=== PATIENT | male | born 1950 | race African-American/Black ===

== ENCOUNTER 2016-10-11 05:00 | Inpatient (IN) ==
--- NOTE | 2016-10-10 06:30 | Cardiothoracic History & Phys ---
History of Present Illness Chief complaint: Shortness of breath History of present illness: Mr. Romano is a 66 year old male who presented with symptoms of increasing dyspnea on exertion. He underwent a stress test in July 2016 which suggested an inferior defect but his ejection fraction was in the upper 50s. His exercise tolerance on the protocol was marginal and further workup was suggested. Patient underwent cardiac catheterization about a week ago which revealed significant left main coronary stenosis and the patient was advised to have bypass surgery. Because he was on Plavix we elected to wait approximately a week prior to surgery. He is admitted for coronary bypass surgery on 10/12/2016. Past medical history is significant for history of hypertension and dyslipidemia. He also has a history of a hernia repair and has had a previous abdominal aortogram. His family history is noncontributory to the present illness social history shows that the patient is a former smoker but quit 4 years ago. Review of systems is noncontributory to the present illness. Physical examination patient is a well-developed well-nourished - Polish male in no acute distress. Examination of head eyes ears nose and throat show the pupils are equal and react to light extraocular motions are intact and the oropharynx is benign. Examination of the neck shows no bruits and there is no thyromegaly and there are no masses. Examination of chest is clear to percussion and auscultation. Examination of the heart shows a regular sinus rhythm without murmurs. Examination of the abdomen shows that it is soft and nontender there are no masses or organomegaly palpable. Examination extremities shows no cyanosis or edema. Neurological examination is grossly intact. Assessment: Coronary artery disease with left main coronary involvement. Plan: Coronary bypass surgery 10/12/2016. Home Medications Medication Instructions Recorded Confirmed Type Aspirin [Ecotrin] 81 mg PO DAILY 05/15/16 10/06/16 History Atorvastatin [Lipitor] 40 mg PO BEDTIME 05/15/16 10/06/16 History Finasteride 5 mg PO DAILY 05/15/16 10/06/16 History Tamsulosin [Flomax] 0.4 mg PO DAILY 05/15/16 10/06/16 History Clopidogrel [Plavix] 75 mg PO DAILY #30 tablet 05/18/16 10/06/16 Rx Cilostazol [Pletal] 50 mg PO DAILY 06/04/16 10/06/16 History Lisinopril/Hydrochlorothiazide 1 each PO DAILY 06/04/16 10/06/16 History [Lisinopril-Hctz 10-12.5 mg Tab] Albuterol Inhaler [Proventil 1 puff INH Q6H PRN #1 inhaler 10/02/16 10/06/16 Rx Inhaler] Allergies Allergy/AdvReac Type Severity Reaction Status Date / Time No Known Allergies Allergy Unverified 05/17/16 06:54 Medical,Surgical,& Family Hx - Medical History Cardio: History of: Hypertension Neurology: No history of: Seizures Endocrine: History of: Dyslipidemia - Surgical History Cardiac Surgeries: Sugical HX of: Cardiac Catheterization Abdominal Surgeries: Surgical HX of: Hernia Repair - Family History Family History: Reports;: Family Hypertension - Social History Smoking Status: Former smoker
[2016-10-11] MEDS ORDERED: ALBUTEROL 2.5 MG/3 ML NEB RESP TX PRN (13:00)
[2016-10-11 13:10] LABS: Basophils % 0.4 % (0.0-0.8); Eosinophils # 0.1 10*3/uL (0.0-0.87); Hematocrit 26.7 VOL% (42.0-52.0); Hemoglobin 7.8 GM/DL (14.0-18.0); Immature Granulocytes % 0.3 %; Immature Granulocytes Absolute 0.02 #; Lymphocytes # 2.4 10*3/uL (1.4-4.0); Lymphocytes % 34.4 % (21.2-54.2); Mean Corpuscular HGB Conc 29.2 GM/DL (32-36); Mean Corpuscular Hemoglobin 22 PG (27-34); Mean Corpuscular Volume 75.2 FL (87-102); Mean Platelet Volume 10.1 FL (9.6-12.0); Monocytes # 0.6 10*3/uL (0.11-0.8); Monocytes % 8.6 % (1.7-12.7); Neutrophils # 3.9 10*3/uL (1.4-7.4); Neutrophils % 55.3 % (38.7-73.9); Platelet Count 329 T/CUMM (130-400); Red Blood Count 3.55 MC/CUMM (3.8-5.5); Red Cell Distribution Width 17.8 % (9.3-17.3)
[2016-10-11 13:41] LABS: Albumin 3.7 G/DL (3.4-5.0); Bilirubin,Total 0.4 MG/DL (0.2-1.0); Calcium 9.4 MG/DL (8.5-10.1); Osmolality,Calculated 278.4 MOS/KG (273-304); Potassium 4.5 MMOL/L (3.5-5.1); Total Protein 7.1 G/DL (6.4-8.3)
--- NOTE | 2016-10-11 14:46 | Hospitalist Consult Note ---
<Dick Lares - Last Filed: 10/11/16 14:33> Assessment and Plan (1) Hypertension Status: Acute Assessment and plan: Well-controlled. Continue home meds. Current Visit: Yes (2) CAD (coronary artery disease) Status: Acute Assessment and plan: Left heart cath performed by Dr. Kenn Rob revealed significant blockage of the left main artery. Patient is scheduled to undergo CABG on September. Dr. Delcid. Current Visit: Yes History of Present Illness - Data of Consult Patient: new to practice Consult date: 10/11/16 Requesting Physician: Yao Delcid - Consult Narrative Reason for consult: Glucose Management History of present illness: Mr. Romano is a 66 year old male with a past medical history significant for hypertension, coronary artery disease who is admitted for coronary bypass surgery on September. We have been consulted to manage his blood glucose levels perioperatively. The patient stated that he had been progressively experiencing dyspnea on exertion and underwent a stress test in July 2016 and a left heart catheterization on last week. He was found to have significant stenosis of the left main artery and has been advised to undergo CABG to correct this. Mr. Romano is a former smoker (quit 4 years ago) and currently drinks beer socially. On exam, he is lying awake in bed and in mild distress with the impending surgery. He denies chest pain, palpitations, shortness of breath, blurry vision, near syncope. The patient is not a diabetic but is at risk for elevated glucose levels simply by nature of the surgery. We are happy to follow along and manage as necessary. We have initiated Accu-Cheks ACHS and begun the sliding scale insulin protocol. CC: Yao Delcid MD - Home Medications and Allergies Home Medications: Home Medications Medication Instructions Recorded Confirmed Type Aspirin [Ecotrin] 81 mg PO DAILY 05/15/16 10/11/16 History Atorvastatin [Lipitor] 40 mg PO BEDTIME 05/15/16 10/11/16 History Finasteride 5 mg PO DAILY 05/15/16 10/11/16 History Tamsulosin [Flomax] 0.4 mg PO DAILY 05/15/16 10/11/16 History Clopidogrel [Plavix] 75 mg PO DAILY #30 tablet 05/18/16 10/11/16 Rx Cilostazol [Pletal] 50 mg PO DAILY 06/04/16 10/11/16 History Allergies/Adverse Reactions: Allergies Allergy/AdvReac Type Severity Reaction Status Date / Time No Known Allergies Allergy Unverified 05/17/16 06:54 Medical,Surgical,& Family Hx - Medical History Cardio: History of: CAD, Hypertension Neurology: No history of: Seizures Endocrine: History of: Dyslipidemia - Surgical History Cardiac Surgeries: Sugical HX of: Cardiac Catheterization Abdominal Surgeries: Surgical HX of: Hernia Repair - Family History Family History: Reports;: Family Hypertension - Social History Smoking Status: Former smoker Frequency of Alcohol Use: Rarely Type of Drug Use: None Marital Status: Lives With:: Spouse Functional capacity: independent ambulation - Constitutional Constitutional: Present: fatigue. Absent: frequent falls, weight gain, weight loss - EENT Eyes: Absent: blurry vision, loss of vision Ears: Absent: decreased hearing, ear pain Nose, mouth and throat: Absent: dysphagia, headache(s), neck pain, sinus pressure - Cardiovascular Cardiovascular: Present: dyspnea on exertion. Absent: chest pain at rest, edema , radiating jaw, neck or arm pain - Respiratory Respiratory: Present: dyspnea. Absent: hemoptysis, wheezing - Gastrointestinal Gastrointestinal: Absent: abdominal pain, change in bowel habits, coffee ground emesis, nausea, vomiting - Genitourinary Genitourinary: Absent: difficulty urinating, dysuria - Musculoskeletal Musculoskeletal: Absent: back pain, muscle cramps - Neurological Neurological: Absent: abnormal gait, abnormal speech, dizziness, syncope - Psychiatric Psychiatric: Absent: anxiety, depression - Endocrine Endocrine: Absent: cold intolerance, heat intolerance - Hematologic/Lymphatic Hematologic/Lymphatic: Absent: easy bleeding, easy bruising Exam - Constitutional Vitals: Period Temp Pulse Resp BP Sys/Hart Pulse Ox Last 24 Hr 98.1 F 77 17 140/77 100 Exam: General appearance: normal weight, no acute distress - Head Head exam: Present: normocephalic, atraumatic - Eye Eye exam: Present: EOMI. Absent: conjunctival injection, nystagmus Pupils: Present: BOZENA, normal accommodation - ENT ENT exam: Present: normal exam, normal external ear exam - Neck Neck exam: Present: normal inspection. Absent: lymphadenopathy, tenderness, thyromegaly - Respiratory Respiratory exam: Present: clear to auscultation bilaterally. Absent: rales, rhonchi, wheezes - Cardiovascular Cardiovascular exam: Present: regular rate and rhythm. Absent: carotid bruit, gallop, rubs - GI/Abdominal GI/Abdominal exam: Present: normal bowel sounds. Absent: ascites, distended, mass - Extremities Exam Extremities exam: Present: normal inspection, normal capillary refill. Absent: edema - Back Exam Back exam: Absent: CVA tenderness (L), CVA tenderness (R) - Neurological Exam Neurological exam: Present: alert, oriented X3 - Psychiatric Psychiatric exam: Present: normal affect, normal mood - Skin Skin exam: Present: normal color, warm, dry Results - Labs CBC & BMP: 10/11/16 13:01 10/11/16 13:01 Lab Results: I have reviewed the past 24 hour labs Quality Measures - VTE Contraindication to Pharmacological VTE Prophylaxis: High Risk of Bleeding <Lisa Butler - Last Filed: 10/11/16 19:57> History of Present Illness - Consult Narrative History of present illness: Mr. Romano is a 66 year old male with a history of PAD status post PCI in bilateral lower extremities, BPH, peptic ulcer disease, and suspected COPD who presented to the hospital with a chief complaint of "my arteries are blocked." Patient reports that approximately 2 weeks ago he started having progressive shortness of breath with dyspnea on exertion. He was diagnosed with pneumonia by his primary care provider and was treated with antibiotics and inhalers. Patient reports he took the medication for approximately a week but his symptoms and so he presented to the emergency room. He was prescribed a repeat round of antibiotics and inhalers and took this medicine for 2 days. He noticed no improvement so he went back to his primary care provider where he had a CT of the chest done. Patient followed up with his receiving and processing supervisor 2 days later and described his symptoms at which time he was scheduled for heart catheterization the next day and was noted to have three -vessel disease per the patient. He is being brought in to undergo a CABG on and we have been asked to assist with medical management. Currently patient denies any chest pain, shortness of breath, lower extremity swelling, he denies any recent long trips, or any hormone therapy. He denies any signs or symptoms of bleeding. A 10 point review of systems was reviewed with the patient was otherwise unremarkable. PMH: CAD, suspected COPD, PUD, BPH, PAD PSH: Bilateral inguinal hernia repair, bilateral PCI to the lower extremities MEDS: Atorvastatin 40 mg by mouth every evening; Pletal 50 mg by mouth daily; Flomax 0.4 mg by mouth daily; finasteride 5 mg by mouth daily; aspirin 81 mg by mouth daily. Allergies: No known drug allergies FH: +diabetes, hypertension. Denies stroke or coronary artery disease. SH: Patient quit smoking within the last 5 years after a [id number] smoking history; he occasionally drinks beer; he denies any illicit drug use; he is ; he is a full code P.E. See vitals on WELL HEAD PUMPER note. reviewed GEN: Patient is a pleasant -[place] male sitting in the hospital chair comfortable in no acute distress. Well developed and well nourished. HEENT: Pupils are equal and reactive to light. Extraocular muscles are intact. Sclerae clear clear. Conjunctivae pink. Nares are patent. No discharge or epistaxis noted. Oropharynx is clear. Neck: Supple. No lymphadenopathy or thyromegaly appreciated. No JVD. CV: RRR normal S1-S2. No obvious murmurs rubs or gallops. No carotid bruits auscultated. +2 radial and +1 DP pulses appreciated bilaterally Lungs: Clear to auscultation bilaterally diminished lung sounds nonlabored breathing noted. Abdomen: Soft, nontender, nondistended, positive bowel sounds, no organomegaly or masses appreciated. Extremities: Warm and well perfused, no clubbing cyanosis or edema. Neuro: Nonfocal Labs and investigative studies were reviewed. A/P: * CAD- plans for CABG in am. Plavix on Hold. Cont ASA and statin for now. CVTS following. Will check TSH and HgbA1c. * PAD- Cont ASA, Statin. * Dyslipidemia- on statin. Check lipid panel * BPH- cont flomax and finasteride * Microcytic anemia- Pt states he has never had a colonoscopy and denies any melena or BRBPR. Check anemia profile and send FOBT. D/W pt, and family. All questions answered. Thank you for consulting us to participate in the care of this patient. We will follow along with you. CC: Yao Delcid MD Medical,Surgical,& Family Hx - Medical History Cardio: History of: PVD Genitourinary: History of: Prostate Problems Exam - Constitutional Vitals: Period Temp Pulse Resp BP Sys/Hart Pulse Ox Last 24 Hr 98.1 F-98.8 F 58-77 16-17 128-140/69-77 99-100 Results - Labs CBC & BMP: 10/11/16 13:01 10/11/16 13:01
[2016-10-11] MEDS: CHLORHEXIDINE 4% SOLN 118 ML BOTTLE TOP SCH ×2 (14:55→20:32)
[2016-10-11] MEDS ORDERED: DEXTROSE 50% 25 GM/50 ML VIAL IV PRN (15:00)
[2016-10-11] MEDS ORDERED: SODIUM CHLORIDE 0.9% 1,000 ML IV SCH (15:00)
[2016-10-11] MEDS ORDERED: GLUCAGON 1 MG VIAL IM PRN (15:00)
--- NOTE | 2016-10-11 15:01 | EKG Report ---
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
[2016-10-11] MEDS: INSULIN LISPRO 100 UNIT/ML SUBCUT SCH ×2 (16:40→21:48)
--- NOTE | 2016-10-11 17:15 | XRay Report ---
XR chest 2V Indication: Coronary artery disease. Chest 2 views: Comparison 10/02/2016. Heart size and mediastinal contours remain normal. A coronary artery calcification is identified in the LAD territory. Lungs are hyperinflated with bullous emphysema at the apices and central interstitial scarring. No focal infiltrates are shown. Pleural spaces are clear. Impression: No acute cardiomegaly disease. Evidence of COPD. PROCEDURE INTERPRETED AT [facility] DEPARTMENT OF RADIOLOGY Final Report Signed by: Jluis Bradley M.D.
[2016-10-11 20:18] LABS: ABG Base Excess 0.1 MMOL/L (-2.5-2.5); ABG HCO3 24.5 MMOL/L (20-26); ABG Oxygen Saturation 97.5 % (95-100); ABG PCO2 38.6 MM HG (35-48); ABG PH 7.412 (7.35-7.45); ABG PO2 87.3 MM HG (80-95); ABG TCO2 23.2 MMOL/L (23-27); Pt O2 Delivery Device Room Air
[2016-10-11] MEDS: CLORAZEPATE 3.75 MG TABLET PO PRN (20:28)
[2016-10-11 20:35] LABS: Folate 11.2 NG/ML (5.4-24.0); Vitamin B12 504 PG/ML (211-911)
[2016-10-11] MEDS ORDERED: ATORVASTATIN 40 MG TABLET PO SCH (21:00)
[2016-10-11 21:33] LABS: Basophils % 0.5 % (0.0-0.8); Eosinophils # 0.1 10*3/uL (0.0-0.87); Eosinophils % 1.5 % (0.00-10.9); Hematocrit 24.9 VOL% (42.0-52.0); Hemoglobin 7.4 GM/DL (14.0-18.0); Immature Granulocytes % 0.3 %; Immature Granulocytes Absolute 0.02 #; Lymphocytes # 2.1 10*3/uL (1.4-4.0); Lymphocytes % 31.4 % (21.2-54.2); Mean Corpuscular HGB Conc 29.7 GM/DL (32-36); Mean Corpuscular Hemoglobin 22 PG (27-34); Mean Corpuscular Volume 74.8 FL (87-102); Monocytes # 0.7 10*3/uL (0.11-0.8); Monocytes % 10.1 % (1.7-12.7); Neutrophils # 3.7 10*3/uL (1.4-7.4); Neutrophils % 56.2 % (38.7-73.9); Platelet Count 288 T/CUMM (130-400); Red Blood Count 3.33 MC/CUMM (3.8-5.5); Red Cell Distribution Width 17.6 % (9.3-17.3); White Blood Count 6.7 T/CUMM (4-12)
[2016-10-11] MEDS: CHLORHEXIDINE 0.12% ORAL RINSE 60 ML BOTTLE SWISH/SPIT SCH (21:53)
[2016-10-11 22:38] LABS: Sedimentation Rate-Westergren 32 MM/HR (0-20)
[2016-10-12] MEDS: CHLORHEXIDINE 4% SOLN 118 ML BOTTLE TOP SCH ×2 (04:20→11:25)
[2016-10-12] MEDS ORDERED: PAPAVERINE 60 MG/2 ML VIAL ONE (04:37)
[2016-10-12] MEDS ORDERED: VANCOMYCIN 1,000 MG VIAL ONE (04:37)
[2016-10-12 04:56] LABS: Risk Ratio 2.32; VLDL CHOLESTEROL 7.8 MG/DL
[2016-10-12] MEDS: CLORAZEPATE 3.75 MG TABLET PO PRN (06:07)
[2016-10-12] MEDS ORDERED: CEFUROXIME INJ 1,500 MG in SODIUM CHLORIDE 0.9% 100 ML IV ONE (06:30)
[2016-10-12 07:33] LABS: ABG Base Excess -0.5 MMOL/L (-2.5-2.5); ABG HCO3 24.1 MMOL/L (20-26); ABG Oxygen Saturation 99.6 % (95-100); ABG PCO2 39.1 MM HG (35-48); ABG PH 7.407 (7.35-7.45); ABG TCO2 25.3 MMOL/L (23-27); Glucose Heart Surgery 97 MG/DL (74-106); Hemoglobin Heart Surgery 7.3 G/DL (14.0-18.0); Ionized Calcium Arterial 1.15 MMOL/L (1.21-1.46); PCO2 Patient Temp Arterial 39.1 MMHG; PH Patient Temp Arterial 7.407; PO2 Patient Temp Arterial 529.3 MM HG; Patient Temperature 37 CELCIUS; Potassium Heart/CVR 3.8 MMOL/L (3.5-5.1); Sodium Heart/CVR 135 MMOL/L (135-145)
[2016-10-12 07:34] LABS: ABG PO2 529.3 MM HG (80-95)
[2016-10-12 07:38] LABS: Apearance,Urine CLEAR (Clear); Bilirubin,Urine Negative (Negative); Blood, Urine Negative (Negative); Glucose,Urine (UA) Negative (Negative); Ketones,Urine Negative (Negative); Nitrite,Urine Negative (Negative); Protein,Urine Negative; RBC,Urine 1 /HPF (0-4); Urine Color Straw (Yellow); Urine Specific Gravity 1.012 (1.001-1.035); Urine Urobilinogen < 2.0 EU/DL (0.2-1.0); WBC,Urine <1 /HPF (0-6)
[2016-10-12] MEDS ORDERED: TISSUE ADHESIVE 1 EACH APPLICATOR TOP ONE ×2 (07:54→08:15)
[2016-10-12] MEDS ORDERED: NITROPRUSSIDE 50 MG/2 ML VIAL ONE (08:38)
[2016-10-12] MEDS ORDERED: POTASSIUM CHLORIDE RIDER 100 ML IV ONE (08:39)
[2016-10-12] MEDS ORDERED: PHENYLEPHRINE DRIP 40 MG/250 ML PREMIX IV ONE (08:39)
[2016-10-12 08:47] LABS: PH Patient Temp Venous 7.344; PO2 Patient Temp Venous 42.7 MM HG; VBG Base Excess -3.4 MEQ/L (0-4); VBG HCO3 21.3 MEQ/L (24-28); VBG Oxygen Saturation 82.7 %; VBG PCO2 44.1 MMHG (41-51); VBG PH 7.316
[2016-10-12] MEDS ORDERED: ASPIRIN EC 81 MG TABLET PO SCH (09:00)
[2016-10-12] MEDS ORDERED: TAMSULOSIN 0.4 MG CAPSULE PO SCH (09:00)
[2016-10-12] MEDS ORDERED: CILOSTAZOL 50 MG TABLET PO SCH (09:00)
[2016-10-12] MEDS ORDERED: FINASTERIDE 5 MG TABLET PO SCH (09:00)
[2016-10-12 09:21] LABS: Hematocrit Heart Surgery 23.8 PERCENT (42-52); Hemoglobin Heart Surgery 7.6 G/DL (14.0-18.0); PCO2 Patient Temp Venous 36.8 MM HG; PH Patient Temp Venous 7.392; PO2 Patient Temp Venous 33.2 MM HG; Potassium Heart/CVR 4.7 MMOL/L (3.5-5.1); VBG Base Excess -2.1 MEQ/L (0-4); VBG HCO3 22.2 MEQ/L (24-28); VBG Oxygen Saturation 68.8 %; VBG PCO2 38.6 MMHG (41-51); VBG PH 7.378; VBG PO2 35.6 MMHG (17-40)
[2016-10-12] MEDS ORDERED: MANNITOL 12.5 GM/50 ML VIAL IV ONE (09:41)
[2016-10-12] MEDS ORDERED: PHENYLEPHRINE DRIP 20 MG/250 ML PREMIX IV ONE ×2 (09:41→11:01)
[2016-10-12] MEDS ORDERED: PROTAMINE SULFATE 250 MG/25 ML VIAL IV ONE (09:41)
[2016-10-12] MEDS ORDERED: MAGNESIUM SULFATE 1 GM/2 ML VIAL ONE (09:41)
[2016-10-12] MEDS ORDERED: ALBUMIN 25% 25 GM/100 ML VIAL IV ONE (09:41)
[2016-10-12] MEDS ORDERED: DEXTROSE 5% KCL 20 MEQ 20 MEQ/1,000 ML BAG IV ONE (09:41)
[2016-10-12] MEDS ORDERED: SODIUM BICARBONATE 50 MEQ/50 ML SYRINGE IV ONE (09:41)
[2016-10-12] MEDS ORDERED: HEPARIN 10,000 UNIT/10 ML VIAL ONE (09:41)
[2016-10-12] MEDS ORDERED: methylPREDNISolone SOD SUC 1,000 MG/8 ML VIAL ONE (09:41)
[2016-10-12] MEDS ORDERED: PROTAMINE SULFATE 50 MG/5 ML VIAL IV ONE ×2 (09:42→11:12)
[2016-10-12] MEDS ORDERED: FUROSEMIDE 20 MG/2 ML VIAL ONE (09:42)
[2016-10-12 09:49] LABS: ABG Base Excess -1.9 MMOL/L (-2.5-2.5); ABG HCO3 22.8 MMOL/L (20-26); ABG TCO2 21.5 MMOL/L (23-27); Glucose Heart Surgery 246 MG/DL (74-106); Hematocrit Heart Surgery 26.3 PERCENT (42-52); Hemoglobin Heart Surgery 8.4 G/DL (14.0-18.0); Ionized Calcium Arterial 1.11 MMOL/L (1.21-1.46); Patient Temperature 37 CELCIUS; Potassium Heart/CVR 4.3 MMOL/L (3.5-5.1); Sodium Heart/CVR 135 MMOL/L (135-145)
[2016-10-12 10:09] LABS: Hemoglobin A1 (Alkaline) 97.3 % (96.5-98.5); Hemoglobin A2 (Alkaline) 2.7 % (1.5-3.5)
[2016-10-12] MEDS ORDERED: LACTATED RINGERS 250 ML IV PRN (10:46)
[2016-10-12] MEDS ORDERED: ACETAMINOPHEN 650 MG SUPP RECTAL PRN (10:46)
[2016-10-12] MEDS ORDERED: VECURONIUM 10 MG VIAL IV PRN ×2 (10:46)
[2016-10-12] MEDS ORDERED: MIDAZOLAM 2 MG/2 ML VIAL IV PRN (10:46)
[2016-10-12] MEDS ORDERED: PHENYLEPHRINE DRIP 40 MG/250 ML PREMIX IV PRN (10:46)
[2016-10-12] MEDS ORDERED: ONDANSETRON 4 MG/2 ML VIAL IV PRN (10:46)
[2016-10-12] MEDS ORDERED: MAGNESIUM SULF RIDER 4 GM in PREMIX 1 EACH IV PRN (10:46)
[2016-10-12] MEDS ORDERED: MORPHINE 2 MG/1 ML SYRINGE IV PRN (10:46)
[2016-10-12] MEDS ORDERED: INSULIN REGULAR 100 UNIT/ML IV PRN (10:46)
[2016-10-12] MEDS ORDERED: MAGNESIUM SULF RIDER 2 GM in PREMIX 1 EACH IV PRN (10:46)
[2016-10-12] MEDS ORDERED: MORPHINE 10 MG/1 ML VIAL IV PRN (10:46)
[2016-10-12] MEDS ORDERED: INSULIN REGULAR 100 UNIT/ML IV ONE (10:46)
[2016-10-12] MEDS ORDERED: DEXTROSE 50% 25 GM/50 ML VIAL IV PRN ×2 (10:46)
[2016-10-12] MEDS ORDERED: CALCIUM CHLORIDE 1,000 MG/10 ML SYRINGE IV PRN (10:46)
[2016-10-12] MEDS ORDERED: NITROPRUSSIDE 100 MG in DEXTROSE 5% 250 ML IV PRN (10:46)
--- NOTE | 2016-10-12 10:53 | Operative Note ---
Date of procedure: 10/12/16 Pre-op diagnosis: coronary artery disease Post-op diagnosis: same Procedure: Procedure: Coronary bypass grafting 2 with a left internal mammary graft to the circumflex marginal coronary artery the saphenous vein graft to the anterior descending coronary artery. Findings: Patient is a 66-year-old man with increasing symptoms of dyspnea on exertion who underwent evaluation including cardiac catheterization which demonstrated critical occlusion of the ostium of the circumflex coronary artery and moderate left main coronary disease. At time of surgery left ventricular function was noted to be normal and a relatively small left internal mammary artery was placed to the obtuse marginal coronary artery which was moderate size vessel and free of disease site of anastomosis mammary was placed to the circumflex marginal coronary because of concerns about the size of the mammary and also that the very large LAD had only moderate disease and competitive flow might be a problem. Large saphenous vein graft was placed to very large anterior descending coronary artery which was free of disease site of anastomosis. Patient tolerated procedure well and was returned recovery in satisfactory condition. Procedure: The patient brought to the operating and placed on the operating table in supine position. After satisfactory induction of general anesthesia the chest abdomen and legs were prepped and draped in a sterile fashion. The greater saphenous vein was harvested from the left lower leg and prepared as an arterial graft. Incision leg was closed with 3-0 subcutaneous Monopril and 3-0 subcuticular Monocryl. Standard sternotomy incision was made and the sternum was divided and the heart suspended in a pericardial cradle. Left internal mammary artery was dissected free and prepared as an arterial graft. Patient was prepared for cardiopulmonary bypass with systemic heparinization and cannulation of the ascending aorta and right atrium. Cardiopulmonary bypass was begun and the aorta was crossclamped and the heart arrested with cardioplegia solution injected into the aortic root. Heart was protected during the period of crossclamping with topical saline slush. Distal anastomoses were constructed as noted above and then the aorta was unclamped reestablished and cardiac action. The proximal anastomosis was constructed between the ascending aorta and the inflow end to saphenous vein graft. Patient was then weaned from cardiopulmonary bypass without difficulty and heparin effect reversed with protamine. Decannulation was carried out with the defects in the ascending aorta and right atrium closed with 3-0 Prolene. Operative field was inspected for hemostasis and this was considered adequate the incision was closed with interrupted stainless steel wire and the sternum and 0 Monopril and the presternal fascia. Skin and was closed with 3-0 subcuticular Monocryl. 2 chest tubes were left in the anterior mediastinum and brought out through separate stab incisions. Sterile dressings were applied and the patient was returned to recovery in satisfactory condition. Anesthesia: MARYA Surgeon / Physician: Yao Delcid Estimated blood loss: other (unable to determine because of cardiopulmonary bypass) Condition: stable Disposition: ICU Results - Labs CBC & BMP: 10/12/16 09:43 10/11/16 13:01 Discharge Plan - Discharge Medications No Action Tamsulosin [Flomax] 0.4 mg PO DAILY Finasteride 5 mg PO DAILY Atorvastatin [Lipitor] 40 mg PO BEDTIME Aspirin [Ecotrin] 81 mg PO DAILY Clopidogrel [Plavix] 75 mg PO DAILY #30 tablet Cilostazol [Pletal] 50 mg PO DAILY - Follow Up or Referral - Forms/Instructions Instructions: Heart Healthy Diet (GEN), Coronary Artery Bypass Graft, Analyst Programmer (GEN), Sternal Precautions, Analyst Programmer (GEN)
[2016-10-12] MEDS ORDERED: SODIUM CHLORIDE 0.45% 1,000 ML IV SCH ×2 (11:00)
[2016-10-12] MEDS ORDERED: INSULIN REGULAR DRIP 100 ML IV SCH (11:00)
[2016-10-12] MEDS: LACTATED RINGERS 1,000 ML IV PRN ×5 (11:00→16:59)
[2016-10-12] MEDS ORDERED: SEVOFLURANE 1 UNIT/15 MINUTE INH ONE (11:01)
[2016-10-12] MEDS ORDERED: SUFentanil 250 MCG/5 ML AMP ONE (11:01)
[2016-10-12] MEDS ORDERED: MINERAL OIL/PETROLATUM OPH OINT 3.5 GM TUBE ONE (11:02)
[2016-10-12] MEDS ORDERED: ePHEDrine 50 MG/ML AMP ONE (11:02)
[2016-10-12] MEDS ORDERED: ESMOLOL 100 MG/10 ML VIAL IV ONE (11:03)
[2016-10-12] MEDS ORDERED: NITROGLYCERIN DRIP 50 MG/250 ML BOTTLE IV ONE (11:03)
[2016-10-12] MEDS ORDERED: SODIUM CHLORIDE 0.9% 2,000 ML IV ONE (11:03)
[2016-10-12] MEDS ORDERED: ETOMIDATE 20 MG/10 ML VIAL IV ONE (11:03)
[2016-10-12] MEDS ORDERED: GLYCOPYRROLATE 0.4 MG/2 ML VIAL ONE (11:03)
[2016-10-12] MEDS ORDERED: AMINOCAPROIC ACID 5,000 MG/20 ML VIAL IV ONE (11:03)
[2016-10-12] MEDS ORDERED: SODIUM CHLORIDE 0.9% 250 ML IV ONE (11:03)
[2016-10-12 11:12] LABS: ABG HCO3 25.4 MMOL/L (20-26); ABG Oxygen Saturation 99.6 % (95-100); ABG PCO2 36.9 MM HG (35-48); ABG PH 7.439 (7.35-7.45); ABG TCO2 22.9 MMOL/L (23-27); Glucose Heart Surgery 194 MG/DL (74-106); Hematocrit Heart Surgery 28.5 PERCENT (42-52); Hemoglobin Heart Surgery 9.2 G/DL (14.0-18.0); Potassium Heart/CVR 3.8 MMOL/L (3.5-5.1)
[2016-10-12 11:15] LABS: Basophils % 0.2 % (0.0-0.8); Eosinophils # 0.1 10*3/uL (0.0-0.87); Eosinophils % 0.4 % (0.00-10.9); Hematocrit 29.3 VOL% (42.0-52.0); Immature Granulocytes % 0.8 %; Immature Granulocytes Absolute 0.09 #; Lymphocytes # 0.9 10*3/uL (1.4-4.0); Lymphocytes % 7.7 % (21.2-54.2); Mean Corpuscular HGB Conc 31.4 GM/DL (32-36); Mean Corpuscular Hemoglobin 25 PG (27-34); Mean Corpuscular Volume 78.3 FL (87-102); Mean Platelet Volume 10.1 FL (9.6-12.0); Monocytes # 0.7 10*3/uL (0.11-0.8); Monocytes % 5.8 % (1.7-12.7); Neutrophils # 9.7 10*3/uL (1.4-7.4); Neutrophils % 85.1 % (38.7-73.9); Red Blood Count 3.74 MC/CUMM (3.8-5.5); Red Cell Distribution Width 18.4 % (9.3-17.3)
[2016-10-12 11:28] LABS: INR 1.2; PT Patient Result 12.4 SECS; Partial Thromboplastin Time 26.8 SECS (0-40)
[2016-10-12] MEDS: POTASSIUM CHLORIDE RIDER 20 MEQ in PREMIX 1 EACH IV PRN ×3 (11:31→20:30)
--- NOTE | 2016-10-12 11:32 | XRay Report ---
Portable chest Date: 10/12/2016 Clinical history: Line placement Comparison: 10/11/2016 Technique: Portable AP supine chest Findings: The heart is slightly larger in size with interval median sternotomy. The endotracheal tube, nasogastric tube, and mediastinal chest tubes are in satisfactory position. Right IJ CVP line with tip in right atrium. No significant pneumothorax is identified on this supine film. Diffuse parenchymal findings are noted with small pleural effusions. Degenerative changes are noted. Impression: Interval median sternotomy with support devices in satisfactory position. No significant pneumothorax is identified on the supine film. Progressive pulmonary edema/atelectasis with small pleural effusions. PROCEDURE INTERPRETED AT [facility] DEPARTMENT OF RADIOLOGY Final Report Signed by: Dr. Brenda Sauceda
[2016-10-12 11:33] LABS: White Blood Count 11.4 T/CUMM (4-12)
[2016-10-12 11:34] LABS: Hemoglobin 9.2 GM/DL (14.0-18.0); Platelet Count 247 T/CUMM (130-400)
[2016-10-12] MEDS: KETOROLAC 30 MG/1 ML VIAL IV SCH ×3 (11:44→23:21)
[2016-10-12 11:51] LABS: CKMB % 4.9 %
[2016-10-12 11:54] LABS: Troponin I Only 4.62 NG/ML (0.00-0.045)
[2016-10-12 11:59] LABS: Albumin 3.4 G/DL (3.4-5.0); Bilirubin,Total 1.1 MG/DL (0.2-1.0); Calcium 8.7 MG/DL (8.5-10.1); Total Protein 6.1 G/DL (6.4-8.3)
[2016-10-12 12:00] LABS: Osmolality,Calculated 284.4 MOS/KG (273-304)
[2016-10-12] MEDS: POTASSIUM CHLORIDE RIDER 10 MEQ in PREMIX 1 EACH IV PRN ×2 (12:08→14:31)
[2016-10-12] MEDS: MIDAZOLAM 10 MG/2 ML VIAL IV PRN ×3 (13:33→16:02)
[2016-10-12 13:35] LABS: ABG Base Excess -0.2 MMOL/L (-2.5-2.5); ABG HCO3 24.3 MMOL/L (20-26); ABG Oxygen Saturation 99.9 % (95-100); ABG PCO2 36.7 MM HG (35-48); ABG PH 7.422 (7.35-7.45); ABG TCO2 21.9 MMOL/L (23-27); Glucose Heart Surgery 133 MG/DL (74-106); Hemoglobin Heart Surgery 9.4 G/DL (14.0-18.0); Potassium Heart/CVR 3.9 MMOL/L (3.5-5.1)
--- NOTE | 2016-10-12 14:10 | Hospitalist Progress Note ---
Hospitalist: Subjective Interval history: Visited this am. No significant overnight events/ new concerns. Since my visit this am, pt has been taken to OR and underwent CABG. Exam - Constitutional Vitals: Period Temp Pulse Resp BP Sys/Hart Pulse Ox Last 24 Hr 95.2 F-98.9 F 58-84 10-20 87-158/53-88 98-100 Results - Labs CBC & BMP: 10/12/16 11:00 10/12/16 11:00 - Impressions * CAD s/p 2V CABG 10/12. Holding Plavix, ASA and statin for now. CVTS managing. No evidence of DM2. HgbA1c <5.Per guidelines, cont perioperative insulin drip. F/U TSH. - Cont routine post-op care. * PAD- Holding ASA, Statin. * Dyslipidemia- Holding statin. Check lipid panel * BPH- resume flomax and finasteride when able to take po * Microcytic anemia likely due to iron deficiency- Pt states he has never had a colonoscopy and denies any melena or BRBPR. Anemia profile reviewed and FOBT pending. F/U with PCP outpt for colonoscopy D/W pt, and family. All questions answered. Thank you for consulting us to participate in the care of this patient. We will follow along with you. Quality Measures - VTE Contraindication to Pharmacological VTE Prophylaxis: High Risk of Bleeding Specialty Discharge - Follow Up or Referrals
[2016-10-12 15:59] LABS: ABG Base Excess -0.9 MMOL/L (-2.5-2.5); ABG HCO3 23.7 MMOL/L (20-26); ABG Oxygen Saturation 99.8 % (95-100); ABG PCO2 34.9 MM HG (35-48); ABG PH 7.427 (7.35-7.45); ABG TCO2 20.8 MMOL/L (23-27); Glucose Heart Surgery 125 MG/DL (74-106); Hematocrit Heart Surgery 31.6 PERCENT (42-52); Hemoglobin Heart Surgery 10.2 G/DL (14.0-18.0); Potassium Heart/CVR 4.4 MMOL/L (3.5-5.1)
[2016-10-12] MEDS: ALBUMIN 5% 12.5 GM in PREMIX 1 EACH IV PRN ×3 (16:17→22:19)
[2016-10-12 16:19] LABS: Free T4 (Free Thyroxine) 1.38 NG/DL (0.76-1.46); Thyroid Stimulating Hormone 0.953 uIU/ml (0.358-3.74)
[2016-10-12] MEDS: CHLORHEXIDINE 0.12% ORAL RINSE 60 ML BOTTLE SWISH/SPIT SCH (16:40)
[2016-10-12] MEDS: INSULIN LISPRO 100 UNIT/ML SUBCUT SCH (16:45)
[2016-10-12] MEDS: CLORAZEPATE 3.75 MG TABLET PO SCH ×2 (16:56→23:22)
[2016-10-12 18:49] LABS: ABG Base Excess -1.5 MMOL/L (-2.5-2.5); ABG HCO3 23.2 MMOL/L (20-26); ABG Oxygen Saturation 99.4 % (95-100); ABG PCO2 34.7 MM HG (35-48); ABG TCO2 20.5 MMOL/L (23-27); Glucose Heart Surgery 148 MG/DL (74-106); Hematocrit Heart Surgery 30.8 PERCENT (42-52); Hemoglobin Heart Surgery 9.9 G/DL (14.0-18.0); Potassium Heart/CVR 4.3 MMOL/L (3.5-5.1)
[2016-10-12] MEDS: CEFUROXIME INJ 1,500 MG in SODIUM CHLORIDE 0.9% 100 ML IV SCH (19:10)
[2016-10-12 19:33] LABS: CKMB % 4.5 %
[2016-10-12 19:36] LABS: Troponin I Only 5.28 NG/ML (0.00-0.045)
[2016-10-12 20:34] LABS: ABG Base Excess -0.3 MMOL/L (-2.5-2.5); ABG HCO3 24.2 MMOL/L (20-26); ABG Oxygen Saturation 99.5 % (95-100); ABG PCO2 36.2 MM HG (35-48); ABG PH 7.426 (7.35-7.45); ABG TCO2 21.7 MMOL/L (23-27); Glucose Heart Surgery 153 MG/DL (74-106); Hemoglobin Heart Surgery 9.7 G/DL (14.0-18.0); Potassium Heart/CVR 4.2 MMOL/L (3.5-5.1)
[2016-10-12] MEDS ORDERED: CHLORHEXIDINE 0.12% ORAL RINSE 60 ML BOTTLE SWISH/SPIT SCH (21:00)
[2016-10-12] MEDS ORDERED: FUROSEMIDE 40 MG/4 ML VIAL IV ONE (21:20)
[2016-10-13 00:24] LABS: ABG Base Excess -1.3 MMOL/L (-2.5-2.5); ABG HCO3 23.3 MMOL/L (20-26); ABG Oxygen Saturation 99.7 % (95-100); ABG PCO2 32.2 MM HG (35-48); ABG PH 7.445 (7.35-7.45); ABG TCO2 20.1 MMOL/L (23-27); Glucose Heart Surgery 145 MG/DL (74-106); Hematocrit Heart Surgery 30.1 PERCENT (42-52); Hemoglobin Heart Surgery 9.7 G/DL (14.0-18.0); Potassium Heart/CVR 4.2 MMOL/L (3.5-5.1)
[2016-10-13 01:20] LABS: ABG Base Excess -0.8 MMOL/L (-2.5-2.5); ABG HCO3 23.8 MMOL/L (20-26); ABG Oxygen Saturation 99.8 % (95-100); ABG PCO2 33.5 MM HG (35-48); ABG PH 7.442 (7.35-7.45); ABG TCO2 20.7 MMOL/L (23-27); Glucose Heart Surgery 151 MG/DL (74-106); Hematocrit Heart Surgery 31.1 PERCENT (42-52); Hemoglobin Heart Surgery 10.1 G/DL (14.0-18.0); Potassium Heart/CVR 4.1 MMOL/L (3.5-5.1)
[2016-10-13] MEDS: POTASSIUM CHLORIDE RIDER 20 MEQ in PREMIX 1 EACH IV PRN ×2 (01:33→02:53)
[2016-10-13] MEDS ORDERED: DEXTROSE 50% 25 GM/50 ML VIAL IV PRN ×3 (01:40→06:30)
[2016-10-13] MEDS ORDERED: GLUCAGON 1 MG VIAL IM PRN ×3 (01:40→06:30)
[2016-10-13 02:39] LABS: Basophils % 0.1 % (0.0-0.8); Hemoglobin 9.7 GM/DL (14.0-18.0); Immature Granulocytes % 0.3 %; Immature Granulocytes Absolute 0.04 #; Lymphocytes # 0.6 10*3/uL (1.4-4.0); Lymphocytes % 4.7 % (21.2-54.2); Mean Corpuscular HGB Conc 32.3 GM/DL (32-36); Mean Corpuscular Hemoglobin 26 PG (27-34); Mean Platelet Volume 11.1 FL (9.6-12.0); Monocytes # 0.7 10*3/uL (0.11-0.8); Monocytes % 5.5 % (1.7-12.7); Neutrophils # 10.6 10*3/uL (1.4-7.4); Neutrophils % 89.4 % (38.7-73.9); Platelet Count 204 T/CUMM (130-400); Red Blood Count 3.75 MC/CUMM (3.8-5.5); Red Cell Distribution Width 18.5 % (9.3-17.3); White Blood Count 11.9 T/CUMM (4-12)
[2016-10-13 02:40] LABS: ABG Base Excess -1.4 MMOL/L (-2.5-2.5); ABG HCO3 23.2 MMOL/L (20-26); ABG PCO2 35.2 MM HG (35-48); ABG PH 7.416 (7.35-7.45); ABG TCO2 20.6 MMOL/L (23-27); Glucose Heart Surgery 161 MG/DL (74-106); Hematocrit Heart Surgery 30.4 PERCENT (42-52); Hemoglobin Heart Surgery 9.8 G/DL (14.0-18.0); Potassium Heart/CVR 4.3 MMOL/L (3.5-5.1)
[2016-10-13] MEDS: INSULIN REGULAR 100 UNIT/ML SUBCUT SCH ×2 (02:54→06:51)
[2016-10-13 03:23] LABS: CKMB % 3.4 %
[2016-10-13 03:31] LABS: Troponin I Only 5.14 NG/ML (0.00-0.045)
[2016-10-13 03:42] LABS: Albumin 3.7 G/DL (3.4-5.0); Bilirubin,Direct 0.3 MG/DL (0.0-0.20); Bilirubin,Total 1.2 MG/DL (0.2-1.0); Calcium 8.6 MG/DL (8.5-10.1); Magnesium 1.6 MG/DL (1.8-2.4); Osmolality,Calculated 284.3 MOS/KG (273-304); Potassium 4.5 MMOL/L (3.5-5.1)
[2016-10-13 04:24] LABS: Band Neutrophils 1 % (0-10); Hypochromasia 1+; Lymphocytes 8 % (20-55); Ovalocytes Slight; Platelet Estimate Adequate; Segmented Neutrophils 85 % (50-85); Total Cells Counted 100
[2016-10-13] MEDS: CLORAZEPATE 3.75 MG TABLET PO SCH ×4 (04:58→23:35)
[2016-10-13] MEDS: KETOROLAC 30 MG/1 ML VIAL IV SCH ×3 (04:59→18:39)
--- NOTE | 2016-10-13 06:24 | Cardiothoracic Progress Note ---
Cardiothoracic Subjective Interval history: Patient is awake alert and extubated. Vital signs have been stable through the night and he is breathing comfortably this morning. Blood gases are satisfactory postextubation. Urine output has been good and creatinine is within normal limits. Chest tube drainage is minimal and his chest tubes are removed. Overall his progress is satisfactory and I think he can be transferred to telemetry later this morning. Exam (Progress Note) - Constitutional Vitals: Period Temp Pulse Resp BP Sys/Hart Pulse Ox Last 24 Hr 95.2 F-99.6 F 65-87 10-18 89-158/53-88 97-100 Result/EKG - Labs CBC & BMP: 10/13/16 02:30 10/13/16 02:30 Labs: Laboratory Results - last 24 hr 10/11/16 10/11/16 10/11/16 13:00 13:01 21:25 WBC 6.7 RBC 3.33 L Hgb 7.4 L Hct 24.9 L MCV 74.8 L MCH 22 L MCHC 29.7 L RDW 17.6 H Plt Count 288 MPV 10.0 Neut % (Auto) 56.2 Lymph % (Auto) 31.4 [place] % (Auto) 10.1 Eos % (Auto) 1.5 Baso % (Auto) 0.5 Neut # (Auto) 3.7 Lymph # (Auto) 2.1 [place] # (Auto) 0.7 Eos # (Auto) 0.1 Baso # (Auto) 0.0 Total Counted Immature Gran % 0.3 Nucleated RBC % 0.0 Immature Gran # 0.02 Segmented Neutrophils Band Neutrophils Lymphocytes Monocytes Nucleated RBCs # 0.00 Anemia Panel Interp Platelet Estimate Hypochromasia Ovalocytes Morphology Comment ESR Westergren 32 H Absolute Retic 0.1 Percent Retic 2.2 H Retic Hgb Equivalent 18.7 L Hemoglobin A1 97.3 Hemoglobin A2 2.7 Hemoglobin C Not Reportable Hemoglobin D Not Reportable Hemoglobin E Not Reportable Hemoglobin F (ELP) Not Reportable Hemoglobin G Not Reportable Hemoglobin S Not Reportable Hgb ELP Interp INR PT Patient/Control Mix Circ Anticoag PTT Patient Temperature ABG pH ABG pH at Pt Temp ABG pCO2 ABG pCO2 at Pt Temp ABG pO2 ABG pO2 at Pt Temp ABG HCO3 ABG Total CO2 ABG O2 Saturation ABG Base Excess ABG Sodium VBG pH VBG pCO2 VBG pO2 VBG HCO3 VBG Total CO2 VBG O2 Saturation VBG Base Excess Hemoglobin Hematocrit Potassium Glucose Ionized Calcium FiO2 Sodium Chloride Carbon Dioxide Anion Gap BUN Creatinine GFR Calculation BUN/Creatinine Ratio POC Glucose Hemoglobin A1c Calculated Osmolality Calcium Venous Ioniz Calcium Magnesium Total Bilirubin Direct Bilirubin AST ALT Alkaline Phosphatase Total Creatine Kinase CK-MB (CK-2) CK and CKMB Interp Troponin I Total Protein Albumin Globulin Albumin/Globulin Ratio Vitamin B12 504 Folate 11.2 Free T4 TSH 3rd Generation Urine Color Urine Appearance Urine pH Ur Specific [place] Urine Protein Urine Glucose (UA) Urine Ketones Urine Blood Urine Nitrate Urine Bilirubin Urine Urobilinogen Urine Leukocytes Urine RBC Urine WBC Ur Culture Indicated? Blood Type O POSITIVE Antibody Screen Negative JAI (IgG-AHG) JAI, Polyspecific Crossmatch See Detail 10/12/16 10/12/16 10/12/16 03:00 07:30 07:30 WBC RBC Hgb Hct MCV MCH MCHC RDW Plt Count 191 D MPV Neut % (Auto) Lymph % (Auto) [place] % (Auto) Eos % (Auto) Baso % (Auto) Neut # (Auto) Lymph # (Auto) [place] # (Auto) Eos # (Auto) Baso # (Auto) Total Counted Immature Gran % Nucleated RBC % Immature Gran # Segmented Neutrophils Band Neutrophils Lymphocytes Monocytes Nucleated RBCs # Anemia Panel Interp Platelet Estimate Hypochromasia Ovalocytes Morphology Comment ESR Westergren Absolute Retic Percent Retic Retic Hgb Equivalent Hemoglobin A1 Hemoglobin A2 Hemoglobin C Hemoglobin D Hemoglobin E Hemoglobin F (ELP) Hemoglobin G Hemoglobin S Hgb ELP Interp INR PT Patient/Control Mix Circ Anticoag PTT Patient Temperature ABG pH ABG pH at Pt Temp ABG pCO2 ABG pCO2 at Pt Temp ABG pO2 ABG pO2 at Pt Temp ABG HCO3 ABG Total CO2 ABG O2 Saturation ABG Base Excess ABG Sodium VBG pH VBG pCO2 VBG pO2 VBG HCO3 VBG Total CO2 VBG O2 Saturation VBG Base Excess Hemoglobin Hematocrit Potassium Glucose Ionized Calcium FiO2 Sodium Chloride Carbon Dioxide Anion Gap BUN Creatinine GFR Calculation BUN/Creatinine Ratio POC Glucose Hemoglobin A1c < 4.2 L Calculated Osmolality Calcium Venous Ioniz Calcium Magnesium Total Bilirubin Direct Bilirubin AST ALT Alkaline Phosphatase Total Creatine Kinase CK-MB (CK-2) CK and CKMB Interp Troponin I Total Protein Albumin Globulin Albumin/Globulin Ratio Vitamin B12 Folate Free T4 TSH 3rd Generation Urine Color Straw Urine Appearance Clear Urine pH 7.0 Ur Specific [place] 1.012 Urine Protein Negative Urine Glucose (UA) Negative Urine Ketones Negative Urine Blood Negative Urine Nitrate Negative Urine Bilirubin Negative Urine Urobilinogen < 2.0 H Urine Leukocytes Negative Urine RBC 1 Urine WBC <1 Ur Culture Indicated? Not indicated Blood Type Antibody Screen JAI (IgG-AHG) JAI, Polyspecific Crossmatch 10/12/16 10/12/16 10/12/16 07:30 08:45 09:15 WBC RBC Hgb Hct MCV MCH MCHC RDW Plt Count MPV Neut % (Auto) Lymph % (Auto) [place] % (Auto) Eos % (Auto) Baso % (Auto) Neut # (Auto) Lymph # (Auto) [place] # (Auto) Eos # (Auto) Baso # (Auto) Total Counted Immature Gran % Nucleated RBC % Immature Gran # Segmented Neutrophils Band Neutrophils Lymphocytes Monocytes Nucleated RBCs # Anemia Panel Interp Platelet Estimate Hypochromasia Ovalocytes Morphology Comment ESR Westergren Absolute Retic Percent Retic Retic Hgb Equivalent Hemoglobin A1 Hemoglobin A2 Hemoglobin C Hemoglobin D Hemoglobin E Hemoglobin F (ELP) Hemoglobin G Hemoglobin S Hgb ELP Interp INR PT Patient/Control Mix Circ Anticoag PTT Patient Temperature 37 35 36 ABG pH 7.407 ABG pH at Pt Temp 7.407 7.344 7.392 ABG pCO2 39.1 ABG pCO2 at Pt Temp 39.1 40.0 36.8 ABG pO2 529.3 H ABG pO2 at Pt Temp 529.3 42.7 33.2 ABG HCO3 24.1 ABG Total CO2 25.3 ABG O2 Saturation 99.6 ABG Base Excess -0.5 ABG Sodium 135 131 L 131 L VBG pH 7.316 7.378 VBG pCO2 44.1 38.6 L VBG pO2 49.0 H 35.6 VBG HCO3 21.3 L 22.2 L VBG Total CO2 21.5 21.4 VBG O2 Saturation 82.7 68.8 VBG Base Excess -3.4 L -2.1 L Hemoglobin 7.3 L 7.0 L 7.6 L Hematocrit 21.0 L 22.0 L 23.8 L Potassium 3.8 5.0 4.7 Glucose 97 338 H 281 H Ionized Calcium 1.15 L FiO2 80.00 80.00 Sodium Chloride Carbon Dioxide Anion Gap BUN Creatinine GFR Calculation BUN/Creatinine Ratio POC Glucose Hemoglobin A1c Calculated Osmolality Calcium Venous Ioniz Calcium 1.06 L 1.08 L Magnesium Total Bilirubin Direct Bilirubin AST ALT Alkaline Phosphatase Total Creatine Kinase CK-MB (CK-2) CK and CKMB Interp Troponin I Total Protein Albumin Globulin Albumin/Globulin Ratio Vitamin B12 Folate Free T4 TSH 3rd Generation Urine Color Urine Appearance Urine pH Ur Specific [place] Urine Protein Urine Glucose (UA) Urine Ketones Urine Blood Urine Nitrate Urine Bilirubin Urine Urobilinogen Urine Leukocytes Urine RBC Urine WBC Ur Culture Indicated? Blood Type Antibody Screen JAI (IgG-AHG) JAI, Polyspecific Crossmatch 10/12/16 10/12/16 10/12/16 09:43 09:43 11:00 WBC 11.4 D RBC 3.74 L Hgb 9.2 L D Hct 29.3 L MCV 78.3 L MCH 25 L MCHC 31.4 L RDW 18.4 H Plt Count 155 247 D MPV 10.1 Neut % (Auto) 85.1 H Lymph % (Auto) 7.7 L [place] % (Auto) 5.8 Eos % (Auto) 0.4 Baso % (Auto) 0.2 Neut # (Auto) 9.7 H Lymph # (Auto) 0.9 L [place] # (Auto) 0.7 Eos # (Auto) 0.1 Baso # (Auto) 0.0 Total Counted Immature Gran % 0.8 Nucleated RBC % 0.0 Immature Gran # 0.09 Segmented Neutrophils Band Neutrophils Lymphocytes Monocytes Nucleated RBCs # 0.00 Anemia Panel Interp Platelet Estimate Hypochromasia Ovalocytes Morphology Comment ESR Westergren Absolute Retic Percent Retic Retic Hgb Equivalent Hemoglobin A1 Hemoglobin A2 Hemoglobin C Hemoglobin D Hemoglobin E Hemoglobin F (ELP) Hemoglobin G Hemoglobin S Hgb ELP Interp INR PT Patient/Control Mix Circ Anticoag PTT Patient Temperature 37 ABG pH 7.370 ABG pH at Pt Temp 7.370 ABG pCO2 40.0 ABG pCO2 at Pt Temp 40.0 ABG pO2 398.0 H ABG pO2 at Pt Temp 398.0 ABG HCO3 22.8 ABG Total CO2 21.5 L ABG O2 Saturation 100.0 ABG Base Excess -1.9 ABG Sodium 135 VBG pH VBG pCO2 VBG pO2 VBG HCO3 VBG Total CO2 VBG O2 Saturation VBG Base Excess Hemoglobin 8.4 L Hematocrit 26.3 L Potassium 4.3 Glucose 246 H Ionized Calcium 1.11 L FiO2 Sodium Chloride Carbon Dioxide Anion Gap BUN Creatinine GFR Calculation BUN/Creatinine Ratio POC Glucose Hemoglobin A1c Calculated Osmolality Calcium Venous Ioniz Calcium Magnesium Total Bilirubin Direct Bilirubin AST ALT Alkaline Phosphatase Total Creatine Kinase CK-MB (CK-2) CK and CKMB Interp Troponin I Total Protein Albumin Globulin Albumin/Globulin Ratio Vitamin B12 Folate Free T4 TSH 3rd Generation Urine Color Urine Appearance Urine pH Ur Specific [place] Urine Protein Urine Glucose (UA) Urine Ketones Urine Blood Urine Nitrate Urine Bilirubin Urine Urobilinogen Urine Leukocytes Urine RBC Urine WBC Ur Culture Indicated? Blood Type Antibody Screen JAI (IgG-AHG) JAI, Polyspecific Crossmatch 10/12/16 10/12/16 10/12/16 11:00 11:00 11:00 WBC RBC Hgb Hct MCV MCH MCHC RDW Plt Count MPV Neut % (Auto) Lymph % (Auto) [place] % (Auto) Eos % (Auto) Baso % (Auto) Neut # (Auto) Lymph # (Auto) [place] # (Auto) Eos # (Auto) Baso # (Auto) Total Counted Immature Gran % Nucleated RBC % Immature Gran # Segmented Neutrophils Band Neutrophils Lymphocytes Monocytes Nucleated RBCs # Anemia Panel Interp Platelet Estimate Hypochromasia Ovalocytes Morphology Comment ESR W[place]gren Absolute Retic Percent Retic Retic Hgb Equivalent Hemoglobin A1 Hemoglobin A2 Hemoglobin C Hemoglobin D Hemoglobin E Hemoglobin F (ELP) Hemoglobin G Hemoglobin S Hgb ELP Interp INR 1.2 PT Patient/Control Mix 12.4 Circ Anticoag PTT 26.8 Patient Temperature ABG pH 7.439 ABG pH at Pt Temp ABG pCO2 36.9 ABG pCO2 at Pt Temp ABG pO2 136.0 H ABG pO2 at Pt Temp ABG HCO3 25.4 ABG Total CO2 22.9 L ABG O2 Saturation 99.6 ABG Base Excess 1.0 ABG Sodium VBG pH VBG pCO2 VBG pO2 VBG HCO3 VBG Total CO2 VBG O2 Saturation VBG Base Excess Hemoglobin 9.2 L Hematocrit 28.5 L Potassium 4.0 3.8 Glucose 197 H 194 H Ionized Calcium FiO2 Sodium 140 Chloride 104 Carbon Dioxide 26 Anion Gap 14.0 BUN 14 Creatinine 1.00 GFR Calculation 98 BUN/Creatinine Ratio 14.00 POC Glucose Hemoglobin A1c Calculated Osmolality 284.4 Calcium 8.7 Venous Ioniz Calcium Magnesium 2.0 Total Bilirubin 1.10 H Direct Bilirubin AST 30 ALT 20 Alkaline Phosphatase 71 Total Creatine Kinase CK-MB (CK-2) CK and CKMB Interp Troponin I Total Protein 6.1 L Albumin 3.4 Globulin 2.7 Albumin/Globulin Ratio 1.2 Vitamin B12 Folate Free T4 TSH 3rd Generation Urine Color Urine Appearance Urine pH Ur Specific [place] Urine Protein Urine Glucose (UA) Urine Ketones Urine Blood Urine Nitrate Urine Bilirubin Urine Urobilinogen Urine Leukocytes Urine RBC Urine WBC Ur Culture Indicated? Blood Type Antibody Screen JAI (IgG-AHG) JAI, Polyspecific Crossmatch 10/12/16 10/12/16 10/12/16 11:00 11:00 12:13 WBC RBC Hgb Hct MCV MCH MCHC RDW Plt Count MPV Neut % (Auto) Lymph % (Auto) [place] % (Auto) Eos % (Auto) Baso % (Auto) Neut # (Auto) Lymph # (Auto) [place] # (Auto) Eos # (Auto) Baso # (Auto) Total Counted Immature Gran % Nucleated RBC % Immature Gran # Segmented Neutrophils Band Neutrophils Lymphocytes Monocytes Nucleated RBCs # Anemia Panel Interp Platelet Estimate Hypochromasia Ovalocytes Morphology Comment ESR [place]gren Absolute Retic Percent Retic Retic Hgb Equivalent Hemoglobin A1 Hemoglobin A2 Hemoglobin C Hemoglobin D Hemoglobin E Hemoglobin F (ELP) Hemoglobin G Hemoglobin S Hgb ELP Interp INR PT Patient/Control Mix Circ Anticoag PTT Patient Temperature ABG pH ABG pH at Pt Temp ABG pCO2 ABG pCO2 at Pt Temp ABG pO2 ABG pO2 at Pt Temp ABG HCO3 ABG Total CO2 ABG O2 Saturation ABG Base Excess ABG Sodium VBG pH VBG pCO2 VBG pO2 VBG HCO3 VBG Total CO2 VBG O2 Saturation VBG Base Excess Hemoglobin Hematocrit Potassium Glucose Ionized Calcium FiO2 Sodium Chloride Carbon Dioxide Anion Gap BUN Creatinine GFR Calculation BUN/Creatinine Ratio POC Glucose 120 H Hemoglobin A1c Calculated Osmolality Calcium Venous Ioniz Calcium Magnesium Total Bilirubin Direct Bilirubin AST ALT Alkaline Phosphatase Total Creatine Kinase 296 CK-MB (CK-2) 14.6 H CK and CKMB Interp 4.9 Troponin I 4.620 H Total Protein Albumin Globulin Albumin/Globulin Ratio Vitamin B12 Folate Free T4 1.38 TSH 3rd Generation 0.953 Urine Color Urine Appearance Urine pH Ur Specific [place] Urine Protein Urine Glucose (UA) Urine Ketones Urine Blood Urine Nitrate Urine Bilirubin Urine Urobilinogen Urine Leukocytes Urine RBC Urine WBC Ur Culture Indicated? Blood Type Antibody Screen JAI (IgG-AHG) JAI, Polyspecific Crossmatch 10/12/16 10/12/16 10/12/16 13:00 13:22 14:18 WBC RBC Hgb Hct MCV MCH MCHC RDW Plt Count MPV Neut % (Auto) Lymph % (Auto) [place] % (Auto) Eos % (Auto) Baso % (Auto) Neut # (Auto) Lymph # (Auto) [place] # (Auto) Eos # (Auto) Baso # (Auto) Total Counted Immature Gran % Nucleated RBC % Immature Gran # Segmented Neutrophils Band Neutrophils Lymphocytes Monocytes Nucleated RBCs # Anemia Panel Interp Platelet Estimate Hypochromasia Ovalocytes Morphology Comment ESR [place]gren Absolute Retic Percent Retic Retic Hgb Equivalent Hemoglobin A1 Hemoglobin A2 Hemoglobin C Hemoglobin D Hemoglobin E Hemoglobin F (ELP) Hemoglobin G Hemoglobin S Hgb ELP Interp INR PT Patient/Control Mix Circ Anticoag PTT Patient Temperature ABG pH 7.422 ABG pH at Pt Temp ABG pCO2 36.7 ABG pCO2 at Pt Temp ABG pO2 203.0 H ABG pO2 at Pt Temp ABG HCO3 24.3 ABG Total CO2 21.9 L ABG O2 Saturation 99.9 ABG Base Excess -0.2 ABG Sodium VBG pH VBG pCO2 VBG pO2 VBG HCO3 VBG Total CO2 VBG O2 Saturation VBG Base Excess Hemoglobin 9.4 L Hematocrit 29.0 L Potassium 3.9 Glucose 133 H Ionized Calcium FiO2 Sodium Chloride Carbon Dioxide Anion Gap BUN Creatinine GFR Calculation BUN/Creatinine Ratio POC Glucose 91 Hemoglobin A1c Calculated Osmolality Calcium Venous Ioniz Calcium Magnesium Total Bilirubin Direct Bilirubin AST ALT Alkaline Phosphatase Total Creatine Kinase CK-MB (CK-2) CK and CKMB Interp Troponin I Total Protein Albumin Globulin Albumin/Globulin Ratio Vitamin B12 Folate Free T4 TSH 3rd Generation Urine Color Urine Appearance Urine pH Ur Specific [place] Urine Protein Urine Glucose (UA) Urine Ketones Urine Blood Urine Nitrate Urine Bilirubin Urine Urobilinogen Urine Leukocytes Urine RBC Urine WBC Ur Culture Indicated? Blood Type Antibody Screen JAI (IgG-AHG) Negative JAI, Polyspecific Negative Crossmatch 10/12/16 10/12/16 10/12/16 15:08 15:49 17:06 WBC RBC Hgb Hct MCV MCH MCHC RDW Plt Count MPV Neut % (Auto) Lymph % (Auto) [place] % (Auto) Eos % (Auto) Baso % (Auto) Neut # (Auto) Lymph # (Auto) [place] # (Auto) Eos # (Auto) Baso # (Auto) Total Counted Immature Gran % Nucleated RBC % Immature Gran # Segmented Neutrophils Band Neutrophils Lymphocytes Monocytes Nucleated RBCs # Anemia Panel Interp Platelet Estimate Hypochromasia Ovalocytes Morphology Comment ESR [place] Absolute Retic Percent Retic Retic Hgb Equivalent Hemoglobin A1 Hemoglobin A2 Hemoglobin C Hemoglobin D Hemoglobin E Hemoglobin F (ELP) Hemoglobin G Hemoglobin S Hgb ELP Interp INR PT Patient/Control Mix Circ Anticoag PTT Patient Temperature ABG pH 7.427 ABG pH at Pt Temp ABG pCO2 34.9 L ABG pCO2 at Pt Temp ABG pO2 169.0 H ABG pO2 at Pt Temp ABG HCO3 23.7 ABG Total CO2 20.8 L ABG O2 Saturation 99.8 ABG Base Excess -0.9 ABG Sodium VBG pH VBG pCO2 VBG pO2 VBG HCO3 VBG Total CO2 VBG O2 Saturation VBG Base Excess Hemoglobin 10.2 L Hematocrit 31.6 L Potassium 4.4 Glucose 125 H Ionized Calcium FiO2 Sodium Chloride Carbon Dioxide Anion Gap BUN Creatinine GFR Calculation BUN/Creatinine Ratio POC Glucose 92 76 Hemoglobin A1c Calculated Osmolality Calcium Venous Ioniz Calcium Magnesium Total Bilirubin Direct Bilirubin AST ALT Alkaline Phosphatase Total Creatine Kinase CK-MB (CK-2) CK and CKMB Interp Troponin I Total Protein Albumin Globulin Albumin/Globulin Ratio Vitamin B12 Folate Free T4 TSH 3rd Generation Urine Color Urine Appearance Urine pH Ur Specific [place] Urine Protein Urine Glucose (UA) Urine Ketones Urine Blood Urine Nitrate Urine Bilirubin Urine Urobilinogen Urine Leukocytes Urine RBC Urine WBC Ur Culture Indicated? Blood Type Antibody Screen JAI (IgG-AHG) JAI, Polyspecific Crossmatch 10/12/16 10/12/16 10/12/16 18:40 18:43 18:49 WBC RBC Hgb Hct MCV MCH MCHC RDW Plt Count MPV Neut % (Auto) Lymph % (Auto) [place] % (Auto) Eos % (Auto) Baso % (Auto) Neut # (Auto) Lymph # (Auto) [place] # (Auto) Eos # (Auto) Baso # (Auto) Total Counted Immature Gran % Nucleated RBC % Immature Gran # Segmented Neutrophils Band Neutrophils Lymphocytes Monocytes Nucleated RBCs # Anemia Panel Interp Platelet Estimate Hypochromasia Ovalocytes Morphology Comment ESR [place] Absolute Retic Percent Retic Retic Hgb Equivalent Hemoglobin A1 Hemoglobin A2 Hemoglobin C Hemoglobin D Hemoglobin E Hemoglobin F (ELP) Hemoglobin G Hemoglobin S Hgb ELP Interp INR PT Patient/Control Mix Circ Anticoag PTT Patient Temperature ABG pH 7.420 ABG pH at Pt Temp ABG pCO2 34.7 L ABG pCO2 at Pt Temp ABG pO2 144.0 H ABG pO2 at Pt Temp ABG HCO3 23.2 ABG Total CO2 20.5 L ABG O2 Saturation 99.4 ABG Base Excess -1.5 ABG Sodium VBG pH VBG pCO2 VBG pO2 VBG HCO3 VBG Total CO2 VBG O2 Saturation VBG Base Excess Hemoglobin 9.9 L Hematocrit 30.8 L Potassium 4.3 Glucose 148 H Ionized Calcium FiO2 Sodium Chloride Carbon Dioxide Anion Gap BUN Creatinine GFR Calculation BUN/Creatinine Ratio POC Glucose 137 H Hemoglobin A1c Calculated Osmolality Calcium Venous Ioniz Calcium Magnesium Total Bilirubin Direct Bilirubin AST ALT Alkaline Phosphatase Total Creatine Kinase 311 H CK-MB (CK-2) 13.9 H CK and CKMB Interp 4.5 Troponin I 5.280 H Total Protein Albumin Globulin Albumin/Globulin Ratio Vitamin B12 Folate Free T4 TSH 3rd Generation Urine Color Urine Appearance Urine pH Ur Specific [place] Urine Protein Urine Glucose (UA) Urine Ketones Urine Blood Urine Nitrate Urine Bilirubin Urine Urobilinogen Urine Leukocytes Urine RBC Urine WBC Ur Culture Indicated? Blood Type Antibody Screen JAI (IgG-AHG) JAI, Polyspecific Crossmatch 10/12/16 10/13/16 10/13/16 20:25 00:20 01:15 WBC RBC Hgb Hct MCV MCH MCHC RDW Plt Count MPV Neut % (Auto) Lymph % (Auto) [place] % (Auto) Eos % (Auto) Baso % (Auto) Neut # (Auto) Lymph # (Auto) [place] # (Auto) Eos # (Auto) Baso # (Auto) Total Counted Immature Gran % Nucleated RBC % Immature Gran # Segmented Neutrophils Band Neutrophils Lymphocytes Monocytes Nucleated RBCs # Anemia Panel Interp Platelet Estimate Hypochromasia Ovalocytes Morphology Comment ESR [place] Absolute Retic Percent Retic Retic Hgb Equivalent Hemoglobin A1 Hemoglobin A2 Hemoglobin C Hemoglobin D Hemoglobin E Hemoglobin F (ELP) Hemoglobin G Hemoglobin S Hgb ELP Interp INR PT Patient/Control Mix Circ Anticoag PTT Patient Temperature ABG pH 7.426 7.445 7.442 ABG pH at Pt Temp ABG pCO2 36.2 32.2 L 33.5 L ABG pCO2 at Pt Temp ABG pO2 146.0 H 163.0 H 160.0 H ABG pO2 at Pt Temp ABG HCO3 24.2 23.3 23.8 ABG Total CO2 21.7 L 20.1 L 20.7 L ABG O2 Saturation 99.5 99.7 99.8 ABG Base Excess -0.3 -1.3 -0.8 ABG Sodium VBG pH VBG pCO2 VBG pO2 VBG HCO3 VBG Total CO2 VBG O2 Saturation VBG Base Excess Hemoglobin 9.7 L 9.7 L 10.1 L Hematocrit 30.0 L 30.1 L 31.1 L Potassium 4.2 4.2 4.1 Glucose 153 H 145 H 151 H Ionized Calcium FiO2 Sodium Chloride Carbon Dioxide Anion Gap BUN Creatinine GFR Calculation BUN/Creatinine Ratio POC Glucose Hemoglobin A1c Calculated Osmolality Calcium Venous Ioniz Calcium Magnesium Total Bilirubin Direct Bilirubin AST ALT Alkaline Phosphatase Total Creatine Kinase CK-MB (CK-2) CK and CKMB Interp Troponin I Total Protein Albumin Globulin Albumin/Globulin Ratio Vitamin B12 Folate Free T4 TSH 3rd Generation Urine Color Urine Appearance Urine pH Ur Specific [place] Urine Protein Urine Glucose (UA) Urine Ketones Urine Blood Urine Nitrate Urine Bilirubin Urine Urobilinogen Urine Leukocytes Urine RBC Urine WBC Ur Culture Indicated? Blood Type Antibody Screen JAI (IgG-AHG) JAI, Polyspecific Crossmatch 10/13/16 10/13/16 10/13/16 02:30 02:30 02:30 WBC 11.9 RBC 3.75 L Hgb 9.7 L Hct 30.0 L MCV 80.0 L MCH 26 L MCHC 32.3 RDW 18.5 H Plt Count 204 MPV 11.1 Neut % (Auto) 89.4 H Lymph % (Auto) 4.7 L [place] % (Auto) 5.5 Eos % (Auto) 0.0 Baso % (Auto) 0.1 Neut # (Auto) 10.6 H Lymph # (Auto) 0.6 L [place] # (Auto) 0.7 Eos # (Auto) 0.0 Baso # (Auto) 0.0 Total Counted 100 Immature Gran % 0.3 Nucleated RBC % 0.0 Immature Gran # 0.04 Segmented Neutrophils 85 Band Neutrophils 1 Lymphocytes 8 L Monocytes 6 Nucleated RBCs # 0.00 Anemia Panel Interp Platelet Estimate Adequate Hypochromasia 1+ Ovalocytes Slight Morphology Comment ESR [place] Absolute Retic Percent Retic Retic Hgb Equivalent Hemoglobin A1 Hemoglobin A2 Hemoglobin C Hemoglobin D Hemoglobin E Hemoglobin F (ELP) Hemoglobin G Hemoglobin S Hgb ELP Interp INR PT Patient/Control Mix Circ Anticoag PTT Patient Temperature ABG pH ABG pH at Pt Temp ABG pCO2 ABG pCO2 at Pt Temp ABG pO2 ABG pO2 at Pt Temp ABG HCO3 ABG Total CO2 ABG O2 Saturation ABG Base Excess ABG Sodium VBG pH VBG pCO2 VBG pO2 VBG HCO3 VBG Total CO2 VBG O2 Saturation VBG Base Excess Hemoglobin Hematocrit Potassium 4.5 Glucose 150 H Ionized Calcium FiO2 Sodium 141 Chloride 107 Carbon Dioxide 23 Anion Gap 15.5 H BUN 16 Creatinine 1.00 GFR Calculation 98 BUN/Creatinine Ratio 16.00 POC Glucose Hemoglobin A1c Calculated Osmolality 284.3 Calcium 8.6 Venous Ioniz Calcium Magnesium 1.6 L Total Bilirubin 1.20 H Direct Bilirubin 0.30 H AST 38 H ALT 21 Alkaline Phosphatase 57 Total Creatine Kinase 401 H D CK-MB (CK-2) 13.5 H CK and CKMB Interp 3.4 Troponin I 5.140 H Total Protein 6.0 L Albumin 3.7 Globulin 2.3 Albumin/Globulin Ratio 1.6 Vitamin B12 Folate Free T4 TSH 3rd Generation Urine Color Urine Appearance Urine pH Ur Specific [place] Urine Protein Urine Glucose (UA) Urine Ketones Urine Blood Urine Nitrate Urine Bilirubin Urine Urobilinogen Urine Leukocytes Urine RBC Urine WBC Ur Culture Indicated? Blood Type Antibody Screen JAI (IgG-AHG) JAI, Polyspecific Crossmatch 10/13/16 02:30 WBC RBC Hgb Hct MCV MCH MCHC RDW Plt Count MPV Neut % (Auto) Lymph % (Auto) [place] % (Auto) Eos % (Auto) Baso % (Auto) Neut # (Auto) Lymph # (Auto) [place] # (Auto) Eos # (Auto) Baso # (Auto) Total Counted Immature Gran % Nucleated RBC % Immature Gran # Segmented Neutrophils Band Neutrophils Lymphocytes Monocytes Nucleated RBCs # Anemia Panel Interp Platelet Estimate Hypochromasia Ovalocytes Morphology Comment ESR [place]gren Absolute Retic Percent Retic Retic Hgb Equivalent Hemoglobin A1 Hemoglobin A2 Hemoglobin C Hemoglobin D Hemoglobin E Hemoglobin F (ELP) Hemoglobin G Hemoglobin S Hgb ELP Interp INR PT Patient/Control Mix Circ Anticoag PTT Patient Temperature ABG pH 7.416 ABG pH at Pt Temp ABG pCO2 35.2 ABG pCO2 at Pt Temp ABG pO2 86.0 ABG pO2 at Pt Temp ABG HCO3 23.2 ABG Total CO2 20.6 L ABG O2 Saturation 97.0 ABG Base Excess -1.4 ABG Sodium VBG pH VBG pCO2 VBG pO2 VBG HCO3 VBG Total CO2 VBG O2 Saturation VBG Base Excess Hemoglobin 9.8 L Hematocrit 30.4 L Potassium 4.3 Glucose 161 H Ionized Calcium FiO2 Sodium Chloride Carbon Dioxide Anion Gap BUN Creatinine GFR Calculation BUN/Creatinine Ratio POC Glucose Hemoglobin A1c Calculated Osmolality Calcium Venous Ioniz Calcium Magnesium Total Bilirubin Direct Bilirubin AST ALT Alkaline Phosphatase Total Creatine Kinase CK-MB (CK-2) CK and CKMB Interp Troponin I Total Protein Albumin Globulin Albumin/Globulin Ratio Vitamin B12 Folate Free T4 TSH 3rd Generation Urine Color Urine Appearance Urine pH Ur Specific [place] Urine Protein Urine Glucose (UA) Urine Ketones Urine Blood Urine Nitrate Urine Bilirubin Urine Urobilinogen Urine Leukocytes Urine RBC Urine WBC Ur Culture Indicated? Blood Type Antibody Screen JAI (IgG-AHG) JAI, Polyspecific Crossmatch Quality Measures - VTE Contraindication to Pharmacological VTE Prophylaxis: High Risk of Bleeding Specialty Discharge - Follow Up or Referrals
[2016-10-13] MEDS ORDERED: ALBUTEROL 2.5 MG/3 ML NEB RESP TX PRN (06:26)
[2016-10-13] MEDS ORDERED: CLORAZEPATE 3.75 MG TABLET PO PRN (06:26)
[2016-10-13] MEDS ORDERED: MAGNESIUM SULF RIDER 4 GM in PREMIX 1 EACH IV PRN (06:30)
[2016-10-13] MEDS ORDERED: ZALEPLON 5 MG CAPSULE PO PRN (06:30)
[2016-10-13] MEDS ORDERED: MAGNESIUM SULF RIDER 2 GM in PREMIX 1 EACH IV PRN (06:30)
[2016-10-13] MEDS ORDERED: ALUMINUM/MAGNES/SIMETH MAX STR 30 ML UDCUP PO PRN (06:30)
[2016-10-13] MEDS ORDERED: ONDANSETRON 4 MG/2 ML VIAL IV PRN (06:30)
[2016-10-13] MEDS ORDERED: POTASSIUM CHLORIDE 20 MEQ TABLET PO PRN (06:30)
[2016-10-13] MEDS ORDERED: MAGNESIUM HYDROXIDE SUSP 30 ML UDCUP PO PRN (06:30)
[2016-10-13] MEDS: CEFUROXIME INJ 1,500 MG in SODIUM CHLORIDE 0.9% 100 ML IV SCH (06:37)
[2016-10-13] MEDS: oxyCODONE/ACETAMINOPHEN 5-325 MG TABLET PO PRN (07:08)
--- NOTE | 2016-10-13 07:28 | XRay Report ---
XR chest 1V portable Indication: Chest tube removal, pneumothorax Comparison: 12 October 2016 Findings: The heart and mediastinum are stable in size and configuration with cardiac surgery changes. The mediastinal drains, endotracheal tube and NG tube have been removed. Right internal jugular catheter is unchanged in position. Pulmonary vascularity is increased but similar to previous. Slight increased hazy a right lower lung density. No other lung infiltrates, effusions, pneumothorax or other abnormality is demonstrated. Impression: Removal of endotracheal tube NG tube and mediastinal drains. Increased right lower lung density, can indicate atelectasis or infiltrate. PROCEDURE INTERPRETED AT [facility] DEPARTMENT OF RADIOLOGY Final Report Signed by: Dr. Devin Joseph
--- NOTE | 2016-10-13 07:37 | Hospitalist Progress Note ---
Hospitalist: Subjective Interval history: Pt has been extubated. Pain controlled. No fever. No SOB. Mimimal cough productive of clear sputum. No nausea or vomiting. Tolerating po Exam - Constitutional Vitals: Period Temp Pulse Resp BP Sys/Hart Pulse Ox Last 24 Hr 95.2 F-99.6 F 65-87 10-18 89-158/53-88 97-100 Exam: General exam patient is awake alert oriented 4 lying in hospital bed in no acute distress HEENT exam moist mucous membranes sclerae clear Cardiovascular regular rate and rhythm normal S1-S2 no murmurs Lungs are clear to auscultation bilaterally with good aeration diminished at the bases nonlabored breathing noted Abdomen is soft nontender nondistended positive bowel sounds no organomegaly or masses appreciated Extremity exam is warm and well-perfused no clubbing cyanosis or edema; he does have an incision on his left lower extremity which is bandaged. The dressing is clean dry and intact. Results - Labs CBC & BMP: 10/14/16 04:26 10/14/16 04:25 - Impressions * CAD s/p 2V CABG 10/12. Holding Plavix, ASA and statin for now. CVTS managing. No evidence of DM2. HgbA1c <5.Per guidelines, cont perioperative insulin drip. F/U TSH. - Cont routine post-op care. * PAD- Holding ASA, Statin. * Dyslipidemia- Holding statin. Check lipid panel * BPH- resume flomax and finasteride when able to take po * Microcytic anemia likely due to iron deficiency- Pt states he has never had a colonoscopy and denies any melena or BRBPR. Anemia profile reviewed and FOBT pending. F/U with PCP outpt for colonoscopy D/W pt, nurse. All questions answered. Following along with you. Quality Measures - VTE Contraindication to Pharmacological VTE Prophylaxis: High Risk of Bleeding Specialty Discharge - Follow Up or Referrals
--- NOTE | 2016-10-13 07:42 | EKG Report ---
Stationary ECG Study [facility] Test Date: 10/13/2016 7:42:16 AM Pat Name: Natan ROSS Department: Room: 104 Gender: M [employer]: CARLIN : 1950 Requested by: Yao Ravi Order Number: [id number] Reading MD: LALO BAKER Intervals [place] Rate: 81 P: 69 DC: 147 QRS: 53 QRSD: 87 T: 63 QT: 356 QTc: 393 Interpretive Statements SINUS RHYTHM ST ELEVATION, CONSIDER ANTERIOR INJURY ACUTE [place] Electronically Signed On 10-13-16 17:56:28 CDT by LALO BAKER [email or web address]
[2016-10-13] MEDS: LISINOPRIL/HCTZ 20-12.5 MG TABLET PO SCH (08:30)
[2016-10-13] MEDS: FERROUS SULFATE 325 MG TABLET PO SCH (08:30)
[2016-10-13] MEDS: FINASTERIDE 5 MG TABLET PO SCH (08:31)
[2016-10-13] MEDS: CILOSTAZOL 50 MG TABLET PO SCH (08:31)
[2016-10-13] MEDS: PANTOPRAZOLE 40 MG TABLET PO SCH (08:31)
[2016-10-13] MEDS: TAMSULOSIN 0.4 MG CAPSULE PO SCH (08:32)
[2016-10-13] MEDS: ASPIRIN EC 325 MG TABLET PO SCH (08:32)
[2016-10-13] MEDS: DOCUSATE SODIUM 100 MG CAPSULE PO SCH (08:32)
[2016-10-13] MEDS: SODIUM CHLOR 0.45% KCL 20 MEQ 20 MEQ/1,000 ML BAG IV SCH (08:35)
--- NOTE | 2016-10-13 08:56 | Anesthesia ---
Anesthesia Post OP - Post Ansesthetic Evaluation Patient seen in post op: Yes Resp: within normal limits CV: within normal limits Mental: within normal limits Temp: within normal limits [id number]: within normal limits Nausea and Vomiting: within normal limits Pain: within normal limits
[2016-10-13] MEDS: CHLORHEXIDINE 0.12% ORAL RINSE 60 ML BOTTLE SWISH/SPIT SCH ×2 (09:43→20:46)
[2016-10-13] MEDS: MORPHINE 2 MG/1 ML SYRINGE IV PRN ×2 (10:02→12:13)
--- NOTE | 2016-10-13 16:38 | Hospitalist Progress Note ---
Hospitalist: Subjective Interval history: Patient has since been extubated. Pain is currently controlled. He denies any shortness of breath. He is reports a dry cough. No nausea or vomiting. No abdominal pain. No fevers or chills. Exam - Constitutional Vitals: Period Temp Pulse Resp BP Sys/Hart Pulse Ox Last 24 Hr 97.4 F-99.6 F 68-87 10-18 100-145/59-86 97-100 Exam: General exam patient is awake alert oriented 4 lying in hospital bed in no acute distress HEENT exam moist mucous membranes sclerae clear Cardiovascular regular rate and rhythm normal S1-S2 no murmurs Lungs are clear to auscultation bilaterally with good aeration diminished at the bases nonlabored breathing noted Abdomen is soft nontender nondistended positive bowel sounds no organomegaly or masses appreciated Extremity exam is warm and well-perfused no clubbing cyanosis or edema; he does have an incision on his left lower extremity which is bandaged. The dressing is clean dry and intact. Results - Labs CBC & BMP: 10/13/16 02:30 10/13/16 02:30 - Impressions * CAD s/p 2V CABG 10/12. Holding Plavix. Cont ASA and statin. CVTS managing. No evidence of DM2. HgbA1c <5. TSH normal. - Cont routine post-op care. * PAD-continue aspirin and statin. * Dyslipidemia-resumed on statin. LDL was less than 100. * BPH-continue Flomax and finasteride when able to take po * Microcytic anemia likely due to iron deficiency- Pt states he has never had a colonoscopy and denies any melena or BRBPR. Anemia profile reviewed and FOBT pending. F/U with PCP outpt for colonoscopy. *History of alcohol use-patient on low-dose Tranxene at this time. D/W pt, and nurse. All questions answered. We will follow along with you. Quality Measures - VTE Contraindication to Pharmacological VTE Prophylaxis: High Risk of Bleeding Specialty Discharge - Follow Up or Referrals
[2016-10-13] MEDS ORDERED: KETOROLAC 30 MG/1 ML VIAL IV ONE (18:30)
[2016-10-13] MEDS ORDERED: CEFUROXIME INJ 1,500 MG in SODIUM CHLORIDE 0.9% 100 ML IV ONE (19:00)
[2016-10-13] MEDS: ATORVASTATIN 20 MG TABLET PO SCH (20:45)
[2016-10-14 04:55] LABS: Basophils % 0.1 % (0.0-0.8); Eosinophils % 0.1 % (0.00-10.9); Hematocrit 35.1 VOL% (42.0-52.0); Immature Granulocytes % 0.6 %; Immature Granulocytes Absolute 0.09 #; Lymphocytes # 1.3 10*3/uL (1.4-4.0); Lymphocytes % 8.2 % (21.2-54.2); Mean Corpuscular HGB Conc 31.3 GM/DL (32-36); Mean Corpuscular Hemoglobin 26 PG (27-34); Mean Platelet Volume 10.8 FL (9.6-12.0); Monocytes # 1.2 10*3/uL (0.11-0.8); Monocytes % 7.5 % (1.7-12.7); Neutrophils # 13.2 10*3/uL (1.4-7.4); Neutrophils % 83.5 % (38.7-73.9); Platelet Count 211 T/CUMM (130-400); Red Blood Count 4.28 MC/CUMM (3.8-5.5); Red Cell Distribution Width 19.5 % (9.3-17.3); White Blood Count 15.8 T/CUMM (4-12)
[2016-10-14 05:31] LABS: Albumin 3.2 G/DL (3.4-5.0); Bilirubin,Direct 0.2 MG/DL (0.0-0.20); Bilirubin,Indirect 0.8 MG/DL (0.0-1.0); CKMB % 1.2 %; Calcium 8.7 MG/DL (8.5-10.1); Magnesium 2.2 MG/DL (1.8-2.4); Osmolality,Calculated 281.3 MOS/KG (273-304); Potassium 4.3 MMOL/L (3.5-5.1)
[2016-10-14 05:35] LABS: Troponin I Only 2.4 NG/ML (0.00-0.045)
[2016-10-14] MEDS ORDERED: FUROSEMIDE 40 MG/4 ML VIAL IV ONE (06:00)
[2016-10-14] MEDS: CLORAZEPATE 3.75 MG TABLET PO SCH ×2 (06:12→10:47)
[2016-10-14] MEDS: SODIUM CHLOR 0.45% KCL 20 MEQ 20 MEQ/1,000 ML BAG IV SCH (06:17)
[2016-10-14] MEDS: CHLORHEXIDINE 0.12% ORAL RINSE 60 ML BOTTLE SWISH/SPIT SCH ×2 (08:37→21:46)
[2016-10-14] MEDS: TAMSULOSIN 0.4 MG CAPSULE PO SCH (08:38)
[2016-10-14] MEDS: FERROUS SULFATE 325 MG TABLET PO SCH (08:38)
[2016-10-14] MEDS: FINASTERIDE 5 MG TABLET PO SCH (08:38)
[2016-10-14] MEDS: CILOSTAZOL 50 MG TABLET PO SCH (08:38)
[2016-10-14] MEDS: DOCUSATE SODIUM 100 MG CAPSULE PO SCH (08:38)
[2016-10-14] MEDS: ASPIRIN EC 325 MG TABLET PO SCH (08:38)
[2016-10-14] MEDS: PANTOPRAZOLE 40 MG TABLET PO SCH (08:38)
[2016-10-14] MEDS: LISINOPRIL/HCTZ 20-12.5 MG TABLET PO SCH (08:38)
--- NOTE | 2016-10-14 08:59 | XRay Report ---
Portable chest Date: 10/14/2016 Clinical history: Shortness of breath Comparison: 10/13/2016 Technique: Portable AP sitting chest Findings: Stable cardiomegaly with prior median sternotomy. Stable right IJ CVP line. Decreased pleural and parenchymal findings in both mid to lower lung zones. Stable mediastinum and osseous structures. Impression: Improved atelectasis/edema lung bases with smaller pleural effusions. Recent median sternotomy. PROCEDURE INTERPRETED AT [facility] DEPARTMENT OF RADIOLOGY Final Report Signed by: Dr. Brenda Sauceda
--- NOTE | 2016-10-14 09:31 | Cardiothoracic Progress Note ---
Cardiothoracic Subjective Interval history: Patient looks and feels okay. He is breathing comfortably and his vital signs are stable. We are going to gradually increase his activity according to routine postoperative protocol. Exam (Progress Note) - Constitutional Vitals: Period Temp Pulse Resp BP Sys/Hart Pulse Ox Last 24 Hr 97.4 F-98.8 F 71-89 14-20 82-134/59-86 96-100 Result/EKG - Labs CBC & BMP: 10/14/16 04:26 10/14/16 04:25 Labs: Laboratory Results - last 24 hr 10/13/16 10/14/16 10/14/16 20:19 04:25 04:26 WBC 15.8 H D RBC 4.28 Hgb 11.0 L Hct 35.1 L MCV 82.0 L MCH 26 L MCHC 31.3 L RDW 19.5 H Plt Count 211 MPV 10.8 Neut % (Auto) 83.5 H Lymph % (Auto) 8.2 L Ward % (Auto) 7.5 Eos % (Auto) 0.1 Baso % (Auto) 0.1 Neut # (Auto) 13.2 H Lymph # (Auto) 1.3 L Ward # (Auto) 1.2 H Eos # (Auto) 0.0 Baso # (Auto) 0.0 Immature Gran % 0.6 Nucleated RBC % 0.0 Immature Gran # 0.09 Nucleated RBCs # 0.00 Sodium 141 Potassium 4.3 Chloride 105 Carbon Dioxide 27 Anion Gap 13.3 BUN 16 Creatinine 0.80 GFR Calculation 117 BUN/Creatinine Ratio 20.00 Glucose 93 POC Glucose 176 H Calculated Osmolality 281.3 Calcium 8.7 Magnesium 2.2 Total Bilirubin 1.00 Direct Bilirubin 0.20 Indirect Bilirubin 0.8 AST 31 ALT 19 Alkaline Phosphatase 61 Total Creatine Kinase 440 H CK-MB (CK-2) 5.2 H D CK and CKMB Interp 1.2 Troponin I 2.400 H D Total Protein 6.0 L Albumin 3.2 L Globulin 2.8 Albumin/Globulin Ratio 1.1 Quality Measures - VTE Contraindication to Pharmacological VTE Prophylaxis: High Risk of Bleeding Specialty Discharge - Follow Up or Referrals
[2016-10-14] MEDS: oxyCODONE/ACETAMINOPHEN 5-325 MG TABLET PO PRN (10:01)
[2016-10-14] MEDS ORDERED: DEXTROSE 5% LACTATED RINGERS 500 ML IV ONE (12:07)
[2016-10-14] MEDS ORDERED: DEXTROSE 5% LACTATED RINGERS 1,000 ML IV SCH (12:30)
--- NOTE | 2016-10-14 14:12 | Hospitalist Progress Note ---
Hospitalist: Subjective Interval history: Patient reports that he is coughing up clear sputum but sputum production has improved. He denies any fever. He reports his chest pain is controlled. He denies any nausea or vomiting. No bowel movement yet. No abdominal pain. Tolerating oral intake. Exam - Constitutional Vitals: Period Temp Pulse Resp BP Sys/Hart Pulse Ox Last 24 Hr 98.1 F-98.8 F 71-89 14-24 82-130/55-81 96-100 Exam: General exam patient is awake alert oriented 4 lying in hospital bed in no acute distress HEENT exam moist mucous membranes sclerae clear Cardiovascular regular rate and rhythm normal S1-S2 no murmurs Chest wall: Incision is clean dry and intact. No expressible discharge. No surrounding erythema. Lungs are clear to auscultation bilaterally with good aeration diminished at the bases. Nonlabored breathing noted. Abdomen is soft nontender, nondistended, positive bowel sounds, no organomegaly or masses appreciated Extremity exam is warm and well-perfused no clubbing cyanosis or edema; he does have an incision on his left lower extremity. No expressible discharge or surrounding erythema. The dressing is clean dry and intact. Results - Labs CBC & BMP: 10/14/16 04:26 10/14/16 04:25 - Impressions * CAD s/p 2V CABG 10/12. Holding Plavix. Cont ASA and statin. CVTS managing. No evidence of DM2. HgbA1c <5. TSH normal. - Cont routine post-op care. * PAD-continue aspirin and statin. * Dyslipidemia-resumed on statin. LDL was less than 100. * BPH-continue Flomax and finasteride * Microcytic anemia likely due to iron deficiency- Pt states he has never had a colonoscopy and denies any melena or BRBPR. Anemia profile reviewed and FOBT pending. F/U with PCP outpt for colonoscopy. * History of alcohol use-patient on low-dose Tranxene prn. * Constipation-milk of magnesia. Discussed with nurse and he will receive a dose today. D/W pt, and nurse. All questions answered. Following along with you. I will be away several days. One of my associates will follow in my absence. - Diagnostic Findings Procedure: Chest x-ray: image reviewed by me, report reviewed by me (improved bibasilar densities/ fluid) Quality Measures - VTE Contraindication to Pharmacological VTE Prophylaxis: High Risk of Bleeding Specialty Discharge - Follow Up or Referrals
[2016-10-14] MEDS: ATORVASTATIN 20 MG TABLET PO SCH (21:46)
[2016-10-15] MEDS: ACETAMINOPHEN 325 MG TABLET PO PRN (00:27)
[2016-10-15] MEDS: DEXTROSE 5% LACTATED RINGERS 1,000 ML IV SCH ×3 (00:29→17:19)
[2016-10-15] MEDS: KETOROLAC 30 MG/1 ML VIAL IV PRN ×2 (04:32→14:32)
[2016-10-15 06:57] LABS: Basophils % 0.1 % (0.0-0.8); Hematocrit 35.6 VOL% (42.0-52.0); Hemoglobin 11.1 GM/DL (14.0-18.0); Immature Granulocytes % 1.4 %; Lymphocytes # 1.1 10*3/uL (1.4-4.0); Lymphocytes % 7.6 % (21.2-54.2); Mean Corpuscular HGB Conc 31.2 GM/DL (32-36); Mean Corpuscular Hemoglobin 26 PG (27-34); Mean Corpuscular Volume 81.7 FL (87-102); Mean Platelet Volume 10.7 FL (9.6-12.0); Monocytes # 1.3 10*3/uL (0.11-0.8); Monocytes % 9.5 % (1.7-12.7); Neutrophils # 11.5 10*3/uL (1.4-7.4); Neutrophils % 81.4 % (38.7-73.9); Platelet Count 193 T/CUMM (130-400); Red Blood Count 4.36 MC/CUMM (3.8-5.5); Red Cell Distribution Width 20.3 % (9.3-17.3); White Blood Count 14.1 T/CUMM (4-12)
[2016-10-15 07:26] LABS: Alanine Aminotransferase 23 U/L (16-61); Albumin 2.9 G/DL (3.4-5.0); Alkaline Phosphatase 65 U/L (45-117); Aspartate Amino Transferase 29 U/L (0-37); Bilirubin,Indirect 0.7 MG/DL (0.0-1.0); Blood Urea Nitrogen 17 MG/DL (7-18); Calcium 8.7 MG/DL (8.5-10.1); Glucose 117 MG/DL (74-106); Osmolality,Calculated 285.1 MOS/KG (273-304); Potassium 4.1 MMOL/L (3.5-5.1); Sodium 142 MMOL/L (136-145); Total Protein 5.8 G/DL (6.4-8.3)
--- NOTE | 2016-10-15 08:12 | Cardiothoracic Progress Note ---
Cardiothoracic Subjective Interval history: Patient was somewhat hypotensive yesterday and last night after receiving lisinopril. This is been discontinued. His blood pressure has responded to fluid infusion. His laboratory work and his x-ray all look acceptable and he needs to increase his activity according to routine postoperative protocol. Exam (Progress Note) - Constitutional Vitals: Period Temp Pulse Resp BP Sys/Hart Pulse Ox Last 24 Hr 98.6 F-100.4 F 84-107 16-24 66-116/45-76 95-97 Result/EKG - Labs CBC & BMP: 10/15/16 06:40 10/15/16 06:40 Labs: Laboratory Results - last 24 hr 10/15/16 10/15/16 06:40 06:40 WBC 14.1 H RBC 4.36 Hgb 11.1 L Hct 35.6 L MCV 81.7 L MCH 26 L MCHC 31.2 L RDW 20.3 H Plt Count 193 MPV 10.7 Neut % (Auto) 81.4 H Lymph % (Auto) 7.6 L Bound[place] % (Auto) 9.5 Eos % (Auto) 0.0 Baso % (Auto) 0.1 Neut # (Auto) 11.5 H Lymph # (Auto) 1.1 L [place] # (Auto) 1.3 H Eos # (Auto) 0.0 Baso # (Auto) 0.0 Immature Gran % 1.4 Nucleated RBC % 0.0 Immature Gran # 0.20 Nucleated RBCs # 0.00 Sodium 142 Potassium 4.1 Chloride 106 Carbon Dioxide 30 Anion Gap 10.1 BUN 17 Creatinine 0.80 GFR Calculation 117 BUN/Creatinine Ratio 21.00 H Glucose 117 H Calculated Osmolality 285.1 Calcium 8.7 Magnesium 2.0 Total Bilirubin 1.00 Direct Bilirubin 0.30 H Indirect Bilirubin 0.7 AST 29 ALT 23 Alkaline Phosphatase 65 Total Creatine Kinase 272 D CK-MB (CK-2) < 1.0 Troponin I 1.120 H D Total Protein 5.8 L Albumin 2.9 L Globulin 2.9 Albumin/Globulin Ratio 1.0 L Quality Measures - VTE Contraindication to Pharmacological VTE Prophylaxis: High Risk of Bleeding Specialty Discharge - Follow Up or Referrals
[2016-10-15] MEDS: TAMSULOSIN 0.4 MG CAPSULE PO SCH (09:08)
[2016-10-15] MEDS: CILOSTAZOL 50 MG TABLET PO SCH (09:08)
[2016-10-15] MEDS: FERROUS SULFATE 325 MG TABLET PO SCH (09:08)
[2016-10-15] MEDS: FINASTERIDE 5 MG TABLET PO SCH (09:08)
[2016-10-15] MEDS: DOCUSATE SODIUM 100 MG CAPSULE PO SCH (09:09)
[2016-10-15] MEDS: PANTOPRAZOLE 40 MG TABLET PO SCH (09:09)
[2016-10-15] MEDS: ASPIRIN EC 325 MG TABLET PO SCH (09:09)
--- NOTE | 2016-10-15 09:38 | XRay Report ---
Portable chest Date: 10/15/2069 Clinical history: Shortness of breath Comparison: 10/14/2016 Technique: Portable AP sitting chest Findings: The heart is minimally enlarged with prior median sternotomy. Stable right IJ CVP line. No pneumothorax. Persistent diffuse atelectasis at the lung bases with small pleural effusions. Impression: Status post median sternotomy with no pneumothorax. Persistent diffuse atelectasis at the lung bases with small pleural effusions. PROCEDURE INTERPRETED AT [facility] DEPARTMENT OF RADIOLOGY Final Report Signed by: Dr. Brenda Sauceda
[2016-10-15] MEDS: CHLORHEXIDINE 0.12% ORAL RINSE 60 ML BOTTLE SWISH/SPIT SCH ×2 (12:00→20:35)
--- NOTE | 2016-10-15 13:06 | Hospitalist Progress Note ---
Assessment and Plan - Time spent with patient Time spent with patient: Less than 30 minutes (1) Hypertension Status: Acute Assessment and plan: * CAD s/p 2V CABG 10/12. Holding Plavix. Cont ASA and statin. CVTS managing. No evidence of DM2. HgbA1c <5. TSH normal. - Cont routine post-op care. * PAD-continue aspirin and statin. * Dyslipidemia-resumed on statin. LDL was less than 100. * BPH-continue Flomax and finasteride * Microcytic anemia likely due to iron deficiency- Pt states he has never had a colonoscopy and denies any melena or BRBPR. F/U with PCP outpt for colonoscopy. * History of alcohol use-patient on low-dose Tranxene prn. * Constipation-milk of magnesia. will follow from a distance Current Visit: Yes (2) CAD (coronary artery disease) Status: Acute Current Visit: Yes Hospitalist: Subjective Interval history: pt doing OK no issues reported resting in chair this AM Exam - Constitutional Vitals: Period Temp Pulse Resp BP Sys/Hart Pulse Ox Last 24 Hr 98.4 F-100.4 F 84-107 16-20 66-116/45-76 92-98 General appearance: normal weight, no acute distress - Head Head exam: Present: normal inspection, normocephalic - Eye Eye exam: Present: EOMI Pupils: Present: BOZENA - ENT ENT exam: Present: normal exam - Neck Neck exam: Present: normal inspection. Absent: lymphadenopathy - Respiratory Respiratory exam: Present: clear to auscultation bilaterally. Absent: accessory muscle use, chest wall tenderness, decreased breath sounds - Cardiovascular Cardiovascular exam: Present: regular rate and rhythm, systolic murmur. Absent : irregular rhythm, JVD, tachycardia - GI/Abdominal GI/Abdominal exam: Present: normal bowel sounds, soft. Absent: ascites, distended, psoas sign, tenderness, rebound - Extremities Exam Extremities exam: Present: normal inspection, normal capillary refill - Back Exam Back exam: Present: normal inspection - Neurological Exam Neurological exam: Present: alert, oriented X3, CN II-XII intact Results - Labs CBC & BMP: 10/15/16 06:40 10/15/16 06:40 Lab Results: I have reviewed the past 24 hour labs Quality Measures - VTE Contraindication to Pharmacological VTE Prophylaxis: High Risk of Bleeding Specialty Discharge - Follow Up or Referrals
[2016-10-15] MEDS: ATORVASTATIN 20 MG TABLET PO SCH (20:35)
[2016-10-16] MEDS: KETOROLAC 30 MG/1 ML VIAL IV PRN (04:27)
--- NOTE | 2016-10-16 06:15 | Cardiothoracic Progress Note ---
Cardiothoracic Subjective Interval history: Patient looks and feels okay. He is beginning to ambulate with minimal assistance. He is breathing comfortably and his vital signs have been stable although he continues to run a blood pressure a little on the low side. I think we will just watch this for now and continue to increase his activity according to routine postoperative protocol. Exam (Progress Note) - Constitutional Vitals: Period Temp Pulse Resp BP Sys/Hart Pulse Ox Last 24 Hr 97.7 F-99.2 F 18-111 18-20 74-108/47-68 92-99 Result/EKG - Labs CBC & BMP: 10/15/16 06:40 10/15/16 06:40 Labs: Laboratory Results - last 24 hr 10/15/16 10/15/16 06:40 06:40 WBC 14.1 H RBC 4.36 Hgb 11.1 L Hct 35.6 L MCV 81.7 L MCH 26 L MCHC 31.2 L RDW 20.3 H Plt Count 193 MPV 10.7 Neut % (Auto) 81.4 H Lymph % (Auto) 7.6 L Real % (Auto) 9.5 Eos % (Auto) 0.0 Baso % (Auto) 0.1 Neut # (Auto) 11.5 H Lymph # (Auto) 1.1 L Real # (Auto) 1.3 H Eos # (Auto) 0.0 Baso # (Auto) 0.0 Immature Gran % 1.4 Nucleated RBC % 0.0 Immature Gran # 0.20 Nucleated RBCs # 0.00 Sodium 142 Potassium 4.1 Chloride 106 Carbon Dioxide 30 Anion Gap 10.1 BUN 17 Creatinine 0.80 GFR Calculation 117 BUN/Creatinine Ratio 21.00 H Glucose 117 H Calculated Osmolality 285.1 Calcium 8.7 Magnesium 2.0 Total Bilirubin 1.00 Direct Bilirubin 0.30 H Indirect Bilirubin 0.7 AST 29 ALT 23 Alkaline Phosphatase 65 Total Creatine Kinase 272 D CK-MB (CK-2) < 1.0 Troponin I 1.120 H D Total Protein 5.8 L Albumin 2.9 L Globulin 2.9 Albumin/Globulin Ratio 1.0 L Quality Measures - VTE Contraindication to Pharmacological VTE Prophylaxis: High Risk of Bleeding Specialty Discharge - Follow Up or Referrals
[2016-10-16] MEDS: PANTOPRAZOLE 40 MG TABLET PO SCH (08:38)
[2016-10-16] MEDS: DOCUSATE SODIUM 100 MG CAPSULE PO SCH (08:38)
[2016-10-16] MEDS: TAMSULOSIN 0.4 MG CAPSULE PO SCH (08:39)
[2016-10-16] MEDS: FINASTERIDE 5 MG TABLET PO SCH (08:43)
[2016-10-16] MEDS: FERROUS SULFATE 325 MG TABLET PO SCH (08:44)
[2016-10-16] MEDS: CILOSTAZOL 50 MG TABLET PO SCH (08:44)
[2016-10-16] MEDS: ASPIRIN EC 325 MG TABLET PO SCH (08:44)
[2016-10-16] MEDS: CHLORHEXIDINE 0.12% ORAL RINSE 60 ML BOTTLE SWISH/SPIT SCH ×2 (08:44→21:11)
--- NOTE | 2016-10-16 10:03 | Hospitalist Progress Note ---
Assessment and Plan (1) CAD (coronary artery disease) Status: Acute Assessment and plan: No acute issues; continue Pletal and Lovastatin. Current Visit: Yes Qualifiers: Coronary Disease-Associated Artery/Lesion type: bypass graft (2) Hypertension Status: Acute Assessment and plan: Blood pressures have been stable. Will monitor for changes and adjust as needed. Current Visit: Yes Hospitalist: Subjective Interval history: Patient seen and examined. No significant overnight events reported. Exam - Constitutional Vitals: Period Temp Pulse Resp BP Sys/Hart Pulse Ox Last 24 Hr 97.7 F-99.2 F 18-111 18-20 74-108/47-68 94-99 General appearance: normal weight, no acute distress - Head Head exam: Present: normal inspection, normocephalic - Eye Eye exam: Present: EOMI, conjunctival injection Pupils: Present: BOZENA, normal accommodation - ENT ENT exam: Present: normal exam, normal external ear exam - Neck Neck exam: Present: normal inspection. Absent: lymphadenopathy, meningismus, tenderness, thyromegaly - Respiratory Respiratory exam: Present: clear to auscultation bilaterally. Absent: rales, rhonchi, stridor, wheezes - Cardiovascular Cardiovascular exam: Present: irregular rhythm, regular rate and rhythm. Absent : carotid bruit, diastolic murmur, gallop, JVD, rubs, systolic murmur - GI/Abdominal GI/Abdominal exam: Present: normal bowel sounds, soft. Absent: distended, firm , guarding, mass - Extremities Exam Extremities exam: Present: normal inspection, full ROM. Absent: edema - Back Exam Back exam: Present: normal inspection - Neurological Exam Neurological exam: Present: alert, oriented X3, CN II-XII intact - Psychiatric Psychiatric exam: Present: normal affect, normal mood - Skin Skin exam: Present: normal color, warm, dry Results - Labs CBC & BMP: 10/15/16 06:40 10/15/16 06:40 Lab Results: I have reviewed the past 24 hour labs Quality Measures - VTE Contraindication to Pharmacological VTE Prophylaxis: High Risk of Bleeding Specialty Discharge - Follow Up or Referrals
[2016-10-16] MEDS: ATORVASTATIN 20 MG TABLET PO SCH (21:11)
[2016-10-17 06:42] LABS: Basophils % 0.1 % (0.0-0.8); Eosinophils # 0.2 10*3/uL (0.0-0.87); Eosinophils % 2.3 % (0.00-10.9); Hematocrit 33.5 VOL% (42.0-52.0); Hemoglobin 10.4 GM/DL (14.0-18.0); Immature Granulocytes % 0.5 %; Immature Granulocytes Absolute 0.05 #; Lymphocytes # 1.2 10*3/uL (1.4-4.0); Lymphocytes % 11.9 % (21.2-54.2); Mean Corpuscular Hemoglobin 26 PG (27-34); Mean Corpuscular Volume 82.1 FL (87-102); Mean Platelet Volume 10.5 FL (9.6-12.0); Monocytes # 1.1 10*3/uL (0.11-0.8); Neutrophils # 7.4 10*3/uL (1.4-7.4); Neutrophils % 74.2 % (38.7-73.9); Platelet Count 200 T/CUMM (130-400); Red Blood Count 4.08 MC/CUMM (3.8-5.5); Red Cell Distribution Width 20.3 % (9.3-17.3); White Blood Count 9.9 T/CUMM (4-12)
[2016-10-17 07:18] LABS: Alanine Aminotransferase 64 U/L (16-61); Alkaline Phosphatase 84 U/L (45-117); Aspartate Amino Transferase 47 U/L (0-37); Bilirubin,Indirect 1.1 MG/DL (0.0-1.0); Blood Urea Nitrogen 19 MG/DL (7-18); Calcium 9.4 MG/DL (8.5-10.1); Glucose 101 MG/DL (74-106); Osmolality,Calculated 284.1 MOS/KG (273-304); Potassium 4.5 MMOL/L (3.5-5.1); Sodium 142 MMOL/L (136-145); Total Protein 6.1 G/DL (6.4-8.3)
[2016-10-17 07:19] LABS: Troponin I Only 0.237 NG/ML (0.00-0.045)
--- NOTE | 2016-10-17 07:48 | XRay Report ---
XR chest 2V Indication: Shortness of breath Comparison: 15 October 2016 Findings: The heart and mediastinum are stable in size and configuration with cardiac surgery changes. Right internal jugular catheter is unchanged in position. The pulmonary vascularity is normal in caliber. Bilateral pleural effusions are present left greater than right, similar to previous when accounting for positional difference. No other lung infiltrates, effusions, pneumothorax or other abnormality is demonstrated. Impression: No significant change. PROCEDURE INTERPRETED AT [facility] DEPARTMENT OF RADIOLOGY Final Report Signed by: Dr. Devin Joseph
--- NOTE | 2016-10-17 08:06 | Cardiothoracic Progress Note ---
Cardiothoracic Subjective Interval history: Patient looks and feels fine. He is breathing comfortably and his vital signs have been stable. He is gradually increasing his ambulation. We will continue present therapy and hopefully he will be ready for discharge in a day or 2. Exam (Progress Note) - Constitutional Vitals: Period Temp Pulse Resp BP Sys/Hart Pulse Ox Last 24 Hr 97.2 F-99.3 F 80-105 16-22 95-132/62-80 95-100 Result/EKG - Labs CBC & BMP: 10/17/16 04:32 10/17/16 04:32 Labs: Laboratory Results - last 24 hr 10/17/16 10/17/16 04:32 04:32 WBC 9.9 RBC 4.08 Hgb 10.4 L Hct 33.5 L MCV 82.1 L MCH 26 L MCHC 31.0 L RDW 20.3 H Plt Count 200 MPV 10.5 Neut % (Auto) 74.2 H Lymph % (Auto) 11.9 L Greene % (Auto) 11.0 Eos % (Auto) 2.3 Baso % (Auto) 0.1 Neut # (Auto) 7.4 Lymph # (Auto) 1.2 L Greene # (Auto) 1.1 H Eos # (Auto) 0.2 Baso # (Auto) 0.0 Immature Gran % 0.5 Nucleated RBC % 0.0 Immature Gran # 0.05 Nucleated RBCs # 0.00 Sodium 142 Potassium 4.5 Chloride 106 Carbon Dioxide 29 Anion Gap 11.5 BUN 19 H Creatinine 0.90 GFR Calculation 1197 BUN/Creatinine Ratio 21.00 H Glucose 101 Calculated Osmolality 284.1 Calcium 9.4 Magnesium 2.0 Total Bilirubin 1.30 H Direct Bilirubin 0.20 Indirect Bilirubin 1.1 H AST 47 H ALT 64 H Alkaline Phosphatase 84 Total Creatine Kinase 119 D CK-MB (CK-2) < 1.0 Troponin I 0.237 H D Total Protein 6.1 L Albumin 3.0 L Globulin 3.1 Albumin/Globulin Ratio 0.9 L Quality Measures - VTE Contraindication to Pharmacological VTE Prophylaxis: High Risk of Bleeding Specialty Discharge - Follow Up or Referrals
[2016-10-17] MEDS: FINASTERIDE 5 MG TABLET PO SCH (09:46)
[2016-10-17] MEDS: CILOSTAZOL 50 MG TABLET PO SCH (09:46)
[2016-10-17] MEDS: FERROUS SULFATE 325 MG TABLET PO SCH (09:46)
[2016-10-17] MEDS: DOCUSATE SODIUM 100 MG CAPSULE PO SCH (09:46)
[2016-10-17] MEDS: CHLORHEXIDINE 0.12% ORAL RINSE 60 ML BOTTLE SWISH/SPIT SCH ×2 (09:46→22:10)
[2016-10-17] MEDS: TAMSULOSIN 0.4 MG CAPSULE PO SCH (09:46)
[2016-10-17] MEDS: ASPIRIN EC 325 MG TABLET PO SCH (09:46)
[2016-10-17] MEDS: PANTOPRAZOLE 40 MG TABLET PO SCH (09:46)
--- NOTE | 2016-10-17 10:54 | Hospitalist Progress Note ---
Assessment and Plan - Time spent with patient Time spent with patient: Greater than 30 minutes (1) Status post coronary artery bypass graft Status: Acute Assessment and plan: 66-year-old -[place] male with history of hypertension and coronary artery disease now postop day 5 coronary bypass grafting 2 with left internal mammary and saphenous vein graft by Dr. Delcid. Patient feels well, he is ambulating independently in the room. His blood sugars and blood pressures are under control. According to Dr. Delcid's note he can may be go home tomorrow. No changes made in patient's current regimen. Further recommendations to follow per Dr. Adams. Current Visit: Yes (2) Hypertension Status: Acute Current Visit: Yes (3) CAD (coronary artery disease) Status: Acute Current Visit: Yes Qualifiers: Coronary Disease-Associated Artery/Lesion type: bypass graft Hospitalist: Subjective Interval history: Patient sitting up in the chair. He feels like he is doing great and wants to go home. Dr. Delcid's note says may be tomorrow. Patient is ambulating in the room by himself and performing his incentive spirometry at least 10-15 times per day. Exam - Constitutional Vitals: Period Temp Pulse Resp BP Sys/Hart Pulse Ox Last 24 Hr 97.2 F-99.3 F 80-105 16-22 95-132/62-80 95-100 Exam: 66-year-old -[place] male, no acute distress, alert and oriented Chest clear, median sternotomy incision looks good CV regular rate and rhythm Abdomen soft and nontender Extremities with no edema, left lower extremity vein harvest site looks good. Results - Labs CBC & BMP: 10/17/16 04:32 10/17/16 04:32 Lab Results: I have reviewed the past 24 hour labs - Diagnostic Findings Procedure: Chest x-ray: report reviewed by me (Bilateral pleural effusions with left greater than the right similar to previous x-ray. No infiltrates effusions or pneumothorax demonstrated.) Quality Measures - VTE Contraindication to Pharmacological VTE Prophylaxis: High Risk of Bleeding Specialty Discharge - Follow Up or Referrals
[2016-10-17] MEDS: ATORVASTATIN 20 MG TABLET PO SCH (20:14)
[2016-10-17] MEDS: KETOROLAC 30 MG/1 ML VIAL IV PRN (20:15)
--- NOTE | 2016-10-18 06:15 | Cardiothoracic Progress Note ---
Cardiothoracic Subjective Interval history: No real problems. Vital signs are stable and he is breathing comfortably. He is increasing his activity. I think he will be ready for discharge in the morning. Exam (Progress Note) - Constitutional Vitals: Period Temp Pulse Resp BP Sys/Hart Pulse Ox Last 24 Hr 99.3 F-100.5 F 85-109 18-20 92-106/53-68 93-100 Result/EKG - Labs CBC & BMP: 10/17/16 04:32 10/17/16 04:32 Labs: Laboratory Results - last 24 hr 10/17/16 10/17/16 04:32 04:32 WBC 9.9 RBC 4.08 Hgb 10.4 L Hct 33.5 L MCV 82.1 L MCH 26 L MCHC 31.0 L RDW 20.3 H Plt Count 200 MPV 10.5 Neut % (Auto) 74.2 H Lymph % (Auto) 11.9 L [place] % (Auto) 11.0 Eos % (Auto) 2.3 Baso % (Auto) 0.1 Neut # (Auto) 7.4 Lymph # (Auto) 1.2 L [place] # (Auto) 1.1 H Eos # (Auto) 0.2 Baso # (Auto) 0.0 Immature Gran % 0.5 Nucleated RBC % 0.0 Immature Gran # 0.05 Nucleated RBCs # 0.00 Sodium 142 Potassium 4.5 Chloride 106 Carbon Dioxide 29 Anion Gap 11.5 BUN 19 H Creatinine 0.90 GFR Calculation 1197 BUN/Creatinine Ratio 21.00 H Glucose 101 Calculated Osmolality 284.1 Calcium 9.4 Magnesium 2.0 Total Bilirubin 1.30 H Direct Bilirubin 0.20 Indirect Bilirubin 1.1 H AST 47 H ALT 64 H Alkaline Phosphatase 84 Total Creatine Kinase 119 D CK-MB (CK-2) < 1.0 Troponin I 0.237 H D Total Protein 6.1 L Albumin 3.0 L Globulin 3.1 Albumin/Globulin Ratio 0.9 L Quality Measures - VTE Contraindication to Pharmacological VTE Prophylaxis: High Risk of Bleeding Specialty Discharge - Follow Up or Referrals
--- NOTE | 2016-10-18 07:59 | EKG Report ---
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
--- NOTE | 2016-10-18 08:02 | XRay Report ---
XR chest 2V Indication: Shortness of breath Comparison: 17 October 2016 Findings: The heart and mediastinum are stable in size and configuration with cardiac surgery changes. Right internal jugular catheters been removed. The pulmonary vascularity is normal in caliber. Lung volumes are increased with prominent bronchial markings. Small effusions are present left greater than right similar to previous exam. No other lung infiltrates, effusions, pneumothorax or other abnormality is demonstrated. Impression: Removal of right internal jugular catheter. No other significant changes. PROCEDURE INTERPRETED AT [facility] Final Report Signed by: Dr. Devin Joseph
[2016-10-18 08:57] LABS: Basophils % 0.3 % (0.0-0.8); Eosinophils # 0.2 10*3/uL (0.0-0.87); Eosinophils % 2.4 % (0.00-10.9); Hematocrit 36.6 VOL% (42.0-52.0); Hemoglobin 11.1 GM/DL (14.0-18.0); Immature Granulocytes % 0.6 %; Immature Granulocytes Absolute 0.06 #; Lymphocytes # 1.2 10*3/uL (1.4-4.0); Lymphocytes % 12.7 % (21.2-54.2); Mean Corpuscular HGB Conc 30.3 GM/DL (32-36); Mean Corpuscular Hemoglobin 25 PG (27-34); Mean Corpuscular Volume 81.3 FL (87-102); Mean Platelet Volume 11.4 FL (9.6-12.0); Monocytes % 10.6 % (1.7-12.7); Neutrophils % 73.4 % (38.7-73.9); Platelet Count 247 T/CUMM (130-400); Red Cell Distribution Width 20.8 % (9.3-17.3); White Blood Count 9.5 T/CUMM (4-12)
[2016-10-18 09:36] LABS: Alanine Aminotransferase 97 U/L (16-61); Albumin 3.2 G/DL (3.4-5.0); Alkaline Phosphatase 105 U/L (45-117); Aspartate Amino Transferase 57 U/L (0-37); Bilirubin,Indirect 1.1 MG/DL (0.0-1.0); Blood Urea Nitrogen 23 MG/DL (7-18); Calcium 9.6 MG/DL (8.5-10.1); Glucose 114 MG/DL (74-106); Magnesium 2.2 MG/DL (1.8-2.4); Osmolality,Calculated 283.4 MOS/KG (273-304); Potassium 4.5 MMOL/L (3.5-5.1); Sodium 140 MMOL/L (136-145); Total Protein 6.8 G/DL (6.4-8.3)
[2016-10-18 09:38] LABS: Troponin I Only 0.136 NG/ML (0.00-0.045)
[2016-10-18] MEDS: CILOSTAZOL 50 MG TABLET PO SCH (09:38)
[2016-10-18] MEDS: ASPIRIN EC 325 MG TABLET PO SCH (09:38)
[2016-10-18] MEDS: TAMSULOSIN 0.4 MG CAPSULE PO SCH (09:38)
[2016-10-18] MEDS: DOCUSATE SODIUM 100 MG CAPSULE PO SCH (09:38)
[2016-10-18] MEDS: FINASTERIDE 5 MG TABLET PO SCH (09:38)
[2016-10-18] MEDS: FERROUS SULFATE 325 MG TABLET PO SCH (09:38)
[2016-10-18] MEDS: PANTOPRAZOLE 40 MG TABLET PO SCH (09:38)
[2016-10-18] MEDS: CHLORHEXIDINE 0.12% ORAL RINSE 60 ML BOTTLE SWISH/SPIT SCH ×2 (09:39→21:21)
--- NOTE | 2016-10-18 14:12 | Hospitalist Progress Note ---
Assessment and Plan - Time spent with patient Time spent with patient: Less than 30 minutes (1) Status post coronary artery bypass graft Status: Acute Assessment and plan: 66-year-old -[place] male with history of hypertension and coronary artery disease now postop day 5 coronary bypass grafting 2 with left internal mammary and saphenous vein graft by Dr. Delcid. Patient feels well, he is ambulating independently in the room. His blood sugars and blood pressures are under control. According to Dr. Delcid's note he can may be go home tomorrow. No changes made in patient's current regimen. Further recommendations to follow per Dr. Adams. 10/18/16 patient feels well today and is ready to go home tomorrow per Dr. Delcid. Patient's blood sugars are under control, blood pressures are under control, troponins are trending down. His white count and creatinine are normal. He does have some mildly elevated LFTs but this is stable. No changes were made in patient's current regimen. Further recommendations to follow per Dr. Adams Current Visit: Yes (2) Hypertension Status: Acute Current Visit: Yes (3) CAD (coronary artery disease) Status: Acute Current Visit: Yes Qualifiers: Coronary Disease-Associated Artery/Lesion type: bypass graft Hospitalist: Subjective Interval history: Patient sitting up in chair. He feels well this morning with no complaints. Dr. Delcid has rounded and says he can probably go home in the morning. Patient is doing his incentive spirometry every hour and he is ambulating in the room. Exam - Constitutional Vitals: Period Temp Pulse Resp BP Sys/Hart Pulse Ox Last 24 Hr 98.0 F-100.5 F 82-109 18-20 92-106/53-71 90-97 Exam: 66-year-old -[place] male, no acute distress, alert and oriented Chest clear, median sternotomy with no signs of infection CV regular rate and rhythm Abdomen soft and nontender Extremities with no edema Results - Labs CBC & BMP: 10/18/16 04:00 10/18/16 08:55 Lab Results: I have reviewed the past 24 hour labs - Diagnostic Findings Procedure: Chest x-ray: report reviewed by me (No new mass status post removal of right neck central line) Quality Measures - VTE Contraindication to Pharmacological VTE Prophylaxis: High Risk of Bleeding Specialty Discharge - Follow Up or Referrals
[2016-10-18] MEDS: ATORVASTATIN 20 MG TABLET PO SCH (21:16)
[2016-10-18] MEDS: ACETAMINOPHEN 325 MG TABLET PO PRN (21:19)
--- NOTE | 2016-10-19 06:31 | Discharge Summary ---
Hospital Course - Hospital Course Hospital Course: History of present illness: Patient is a 66-year-old man who has had symptoms of increasing shortness of breath and underwent cardiology evaluation including cardiac catheterization which demonstrated significant left main coronary stenosis. Patient was admitted electively for coronary artery bypass surgery. Past medical history review of systems social history and family history are documented in his admission note. Hospital course: Patient was taken to surgery on the day following admission and two-vessel bypass grafting was carried out with an internal mammary graft to the circumflex marginal coronary artery and a saphenous vein graft to the anterior descending coronary artery. Patient's postoperative course was entirely uncomplicated and he was discharged home on the fifth postoperative day with instructions to return for follow-up in 1 month. Discharge medications are listed below. Specialty Discharge - Follow Up or Referrals Follow up with: Yao Delcid MD [Physician] - 1 Month Discharge Plan - Discharge Data Condition at Discharge: Stable Discharge Diet: advance to your usual diet Activity: resume usual activities as tolerated Hygiene: no restrictions Weight Bearing at Discharge: full weight bearing Driving: not until seen by doctor - Discharge Medications New Atorvastatin [Lipitor] 20 mg PO BEDTIME tablet Cilostazol [Pletal] 50 mg PO DAILY tablet Finasteride [Proscar] 5 mg PO DAILY tablet Tamsulosin [Flomax] 0.4 mg PO DAILY capsule Continue Finasteride 5 mg PO DAILY Atorvastatin [Lipitor] 40 mg PO BEDTIME Aspirin [Ecotrin] 81 mg PO DAILY Clopidogrel [Plavix] 75 mg PO DAILY #30 tablet Cilostazol [Pletal] 50 mg PO DAILY No Action Tamsulosin [Flomax] 0.4 mg PO DAILY - Follow Up or Referral - Forms/Instructions Instructions: Heart Healthy Diet (GEN), Coronary Artery Bypass Graft, Car Runner (GEN), Sternal Precautions, Car Runner (GEN) Exam - Constitutional Vitals: Period Temp Pulse Resp BP Sys/Hart Pulse Ox Last 24 Hr 97.7 F-99.8 F 82-112 16-20 97-104/60-71 90-97 Discharge Results Procedures and tests throughout hospitalization: Pending Orders 10/11/16 13:01 Fresh Frozen Plasma IN AM Red Blood Cells Leuko Red IN AM Single Donor Platelets IN AM Type and Screen Routine 10/18/16 Occult Blood, Stool Stat Labs on day of discharge: Labs from last 24 hours 10/18/16 10/18/16 08:55 04:00 WBC 9.5 RBC 4.50 Hgb 11.1 L Hct 36.6 L MCV 81.3 L MCH 25 L MCHC 30.3 L RDW 20.8 H Plt Count 247 D MPV 11.4 Neut % (Auto) 73.4 Lymph % (Auto) 12.7 L [place] % (Auto) 10.6 Eos % (Auto) 2.4 Baso % (Auto) 0.3 Neut # (Auto) 7.0 Lymph # (Auto) 1.2 L [place] # (Auto) 1.0 H Eos # (Auto) 0.2 Baso # (Auto) 0.0 Immature Gran % 0.6 Nucleated RBC % 0.0 Immature Gran # 0.06 Nucleated RBCs # 0.00 Sodium 140 Potassium 4.5 Chloride 105 Carbon Dioxide 28 Anion Gap 11.5 BUN 23 H Creatinine 1.00 GFR Calculation 1057 BUN/Creatinine Ratio 23.00 H Glucose 114 H Calculated Osmolality 283.4 Calcium 9.6 Magnesium 2.2 Total Bilirubin 1.30 H Direct Bilirubin 0.20 Indirect Bilirubin 1.1 H AST 57 H ALT 97 H Alkaline Phosphatase 105 Total Creatine Kinase 78 D CK-MB (CK-2) < 1.0 Troponin I 0.136 H D Total Protein 6.8 Albumin 3.2 L Globulin 3.6 H Albumin/Globulin Ratio 0.8 L DS: Provider Date of admission: 10/11/16 06:30 Primary care physician: Mark Wallace DO Attending physician on admission: Yao Delcid MD Consults: 10/13/16 06:30 Consult to Cardiac Rehabilitation [CONS] Routine Reason for Cardiac Rehabilitation: Other Consult Comment: Post CABG/heart surgery Consult to Diabetes Center, Educator [CONS] Routine Reason for Supervisor Intermediates: Diabetes Education Initial Insulin Education Consult Comment: insulin education Consult to Dietitian [CONS] Routine Reason for Dietitian: Dietary Consult Consult Comment: Cardiac, low salt, low cholesterol diet Consult to Physical Therapy [CONS] Routine Reason for Physical Therapy: Other Consult Comment: CV Rehab Consult to Physician [CONS] Routine Comment: Management of diabetes Consulting Provider: Consult to Specialist Group: Hospitalist Discharging clinician: Yao Delcid MD Expected date of discharge: 10/19/16
[2016-10-19 08:31] VITALS: BP 108/70
[2016-10-19] MEDS: CHLORHEXIDINE 0.12% ORAL RINSE 60 ML BOTTLE SWISH/SPIT SCH (08:49)
[2016-10-19] MEDS: TAMSULOSIN 0.4 MG CAPSULE PO SCH (08:50)
[2016-10-19] MEDS: FINASTERIDE 5 MG TABLET PO SCH (08:50)
[2016-10-19] MEDS: CILOSTAZOL 50 MG TABLET PO SCH (08:50)
[2016-10-19] MEDS: PANTOPRAZOLE 40 MG TABLET PO SCH (08:50)
[2016-10-19] MEDS: DOCUSATE SODIUM 100 MG CAPSULE PO SCH (08:50)
[2016-10-19] MEDS: ASPIRIN EC 325 MG TABLET PO SCH (08:50)
[2016-10-19] MEDS: FERROUS SULFATE 325 MG TABLET PO SCH (09:10)
== END 2016-10-19 09:36 | disposition home or self-care (01) | DRG 236 ==
LOC: N.TELES 06:30 → N.CVR 10-12 10:55 → N.TELES 10-13 13:59